=== PATIENT | male | born 1950 | race Caucasian/White ===

== ENCOUNTER 2017-12-03 19:30 | Inpatient (IN) | payer MEDICARE ==
[2017-12-03] MEDS ORDERED: Maalox 30 mL Cup PO PRN (19:54)
[2017-12-03] MEDS ORDERED: Magnesium Hydroxide (MOM) 30 mL UDC PO PRN (19:54)
[2017-12-03 19:55] VITALS: BP 113/73
[2017-12-04] MEDS: Multivitamin Tab PO SCH (08:49)
[2017-12-04] MEDS ORDERED: Haloperidol Lactate 5 mg/mL 1mL Vial ONE (09:42)
[2017-12-04] MEDS ORDERED: Haloperidol Lactate 5 mg/mL 1mL Vial IM ONE (09:55)
[2017-12-04] MEDS: Atorvastatin Calcium 10 MG TAB PO SCH (20:44)
--- NOTE | 2017-12-04 21:21 | History & Physical ---
ADMIT DATE: 12/03/2017 HISTORY OF PRESENT ILLNESS: The patient is a 67-year-old male with long history of hypertension, hyperlipidemia, benign prostatic hypertrophy, dementia, psychosis, admitted to [facility], Dr. Iglesias's service for evaluation and treatment. The patient denies any chest pain, shortness of breath, nausea or vomiting. No fever, no chills. PAST MEDICAL HISTORY: Hypertension, hyperlipidemia, benign prostatic hypertrophy, dementia, and psychosis. PAST SURGICAL HISTORY: No recent surgery. ALLERGIES: LITHIUM. SOCIAL HISTORY: No smoking, no alcohol, no drugs. FAMILY HISTORY: Noncontributory. REVIEW OF SYSTEMS: RENAL SYSTEM: No history of chronic renal disorder. CARDIOVASCULAR: No coronary artery disease. ENDOCRINE: No diabetes or thyroid problem. GASTROINTESTINAL: No upper or lower gastrointestinal bleed. NEUROLOGICAL: No seizure disorder. MUSCULOSKELETAL: No muscular dystrophy. HEMATOLOGIC: No bleeding tendencies. RESPIRATORY: No asthma. GENITOURINARY: He has history of benign prostatic hypertrophy. PHYSICAL EXAMINATION: GENERAL: He is awake, not coherent. VITAL SIGNS: Temperature 98.8, heart rate 85, blood pressure 102/65. HEENT: Normocephalic. Pupils reactive to light and accommodation. Sclerae clear. NECK: Supple. Negative for lymphadenopathy, JVD or bruit. CHEST: Bilaterally normal. No rhonchi or wheezing. HEART: S1, S2 normal. No murmur, or gallop rhythm. ABDOMEN: Soft, bowel sounds positive. EXTREMITIES: No edema. NEUROLOGIC: He is awake, not coherent. No focal motor or sensory deficit. ASSESSMENT: 1. Hypertension. 2. Hyperlipidemia. 3. Benign prostatic hypertrophy. 4. Dementia. 5. Psychosis. PLAN: The patient admitted in the hospital under Dr. Iglesias's service. Medical problems addressed during hospitalization, psychosis and dementia. Medical problems addressed at discharge are hypertension, benign prostatic hypertrophy, and hyperlipidemia. The patient is medically stable for activity. Thank you Dr. Iglesias for asking me to see your patient. JOB# [id number]
[2017-12-05 07:52] LABS: % BASOPHILS 1.6 % (0.0-2.0); % EOSINOPHILS 2.7 % (0.0-5.0); % LYMPHOCYTES 33.3 % (20.0-50.0); % MONOCYTES 7.5 % (2.0-10.0); % NEUTROPHILS 54.9 % (40.0-80.0); BASOPHILE ABSOLUTE 0.1 Th/cumm (0-0.2); EOSINOPHILE ABSOLUTE 0.2 Th/cmm (0.1-0.4); HEMATOCRIT 40.3 % (41.0-60); HEMOGLOBIN 13.6 gm/dL (12-16); LYMPHOCYTE ABSOLUTE 2.1 Th/cmm (1.5-3.0); MEAN CELL VOLUME 86.4 fl (80-99); MEAN CORPUSCULAR HEMOGLOBIN 29.1 pg (27.0-31.0); MEAN CORPUSCULAR HGB CONC 33.7 pg (28.0-36.0); MEAN PLATELET VOLUME 6.6 fl; MONOCYTE ABSOLUTE 0.5 Th/cmm (0.3-1.0); NEUTROPHILE ABSOLUTE 3.3 Th/cmm (1.8-8.0); PLATELET COUNT 290 Th/cmm (150-400); RED BLOOD COUNT 4.67 Mil/cmm (3.80-5.80); RED CELL DISTRIBUTION WIDTH 13.3 % (11.5-20.0); WHITE BLOOD COUNT 6.2 Th/cmm (4.8-10.8)
[2017-12-05 08:20] LABS: ALB/GLOB RATIO 1.4 (1.0-1.8); ALBUMIN 4.2 gm/dL (4.2-5.5); ANION GAP 13.4 (7.0-16.0); BILIRUBIN,TOTAL 0.5 mg/dL (0.3-1.0); CALCIUM SERUM 9.6 mg/dL (8.6-10.3); CARBON DIOXIDE 23.7 mEq/L (21.0-31.0); CREATININE - SERUM 1.5 mg/dL (0.7-1.3); GFR AFRICAN-AMERICAN 59.7 ml/min (>90); GFR NON AFRICAN-AMERICAN 49.3 ml/min; POTASSIUM SERUM 4.1 mEq/L (3.5-5.1); TOTAL PROTEIN,SERUM 7.2 gm/dL (6.0-8.3)
[2017-12-05] MEDS: Multivitamin Tab PO SCH (09:17)
--- NOTE | 2017-12-05 14:35 | Internal Medicine Prog Note ---
Internal Medicine Subjective - Subjective Service Date: 12/05/17 Patient seen and examined:: with staff Patient is:: awake, in bed, talking Per staff patient has:: no adverse event (HE DENIES ANY PAIN OR SOB.) Internal Medicine Objective - Results Result Diagrams: 12/05/17 07:25 12/05/17 07:25 Recent Labs: Laboratory Last Values WBC 6.2 Th/cmm (4.8-10.8) 12/05/17 07:25 RBC 4.67 Mil/cmm (3.80-5.80) 12/05/17 07:25 Hgb 13.6 gm/dL (12-16) 12/05/17 07:25 Hct 40.3 % (41.0-60) L 12/05/17 07:25 MCV 86.4 fl (80-99) 12/05/17 07:25 MCH 29.1 pg (27.0-31.0) 12/05/17 07:25 MCHC Differential 33.7 pg (28.0-36.0) 12/05/17 07:25 RDW 13.3 % (11.5-20.0) 12/05/17 07:25 Plt Count 290 Th/cmm (150-400) 12/05/17 07:25 MPV 6.6 fl 12/05/17 07:25 Neutrophils % 54.9 % (40.0-80.0) 12/05/17 07:25 Lymphocytes % 33.3 % (20.0-50.0) 12/05/17 07:25 Monocytes % 7.5 % (2.0-10.0) 12/05/17 07:25 Eosinophils % 2.7 % (0.0-5.0) 12/05/17 07:25 Basophils % 1.6 % (0.0-2.0) 12/05/17 07:25 Sodium 141 mEq/L (136-145) 12/05/17 07:25 Potassium 4.1 mEq/L (3.5-5.1) 12/05/17 07:25 Chloride 108 mEq/L (98-107) H 12/05/17 07:25 Carbon Dioxide 23.7 mEq/L (21.0-31.0) 12/05/17 07:25 Anion Gap 13.4 (7.0-16.0) 12/05/17 07:25 BUN 30 mg/dL (7-25) H 12/05/17 07:25 Creatinine 1.5 mg/dL (0.7-1.3) H 12/05/17 07:25 Est GFR ( Amer) 59.7 ml/min (>90) 12/05/17 07:25 Est GFR (Non-Af Amer) 49.3 ml/min 12/05/17 07:25 BUN/Creatinine Ratio 20.0 12/05/17 07:25 Glucose 116 mg/dL (70-105) H 12/05/17 07:25 Calcium 9.6 mg/dL (8.6-10.3) 12/05/17 07:25 Total Bilirubin 0.5 mg/dL (0.3-1.0) 12/05/17 07:25 AST 22 U/L (13-39) 12/05/17 07:25 ALT 14 U/L (7-52) 12/05/17 07:25 Alkaline Phosphatase 71 U/L (34-104) 12/05/17 07:25 Total Protein 7.2 gm/dL (6.0-8.3) 12/05/17 07:25 Albumin 4.2 gm/dL (4.2-5.5) 12/05/17 07:25 Globulin 3.0 gm/dL 12/05/17 07:25 Albumin/Globulin Ratio 1.4 (1.0-1.8) 12/05/17 07:25 TSH 5.17 uIU/ml (0.34-5.60) 12/05/17 07:25 - Physical Exam Vitals and I&O: Vital Signs Temp 97.6 F 12/05/17 14:00 Pulse 104 12/05/17 14:00 Resp 18 12/05/17 14:00 BP 133/73 12/05/17 14:00 Pulse Ox 98 12/05/17 14:00 Intake & Output 12/04/17 12/05/17 12/05/17 18:59 06:59 18:59 Intake Total 1200 Output Total 600 Balance 600 Intake: Oral 1200 Output: Urine 600 Active Medications: Current Medications Acetaminophen (Tylenol) 650 mg PO Q4HR PRN PRN Reason: Mild Pain / Temp above 100 Stop: 02/01/18 19:53 Last Admin: 12/04/17 21:18 Dose: 650 mg Al Hydrox/Mg Hydrox/Simethicone (Maalox) 30 ml PO Q4HR PRN PRN Reason: GI DISTRESS Stop: 02/01/18 19:53 Atorvastatin Calcium (Lipitor) 20 mg PO HS [facility]; Protocol Stop: 02/02/18 20:59 Last Admin: 12/04/17 20:44 Dose: 20 mg Bethanechol Chloride (Urecholine) 50 mg PO DAILY [facility] Stop: 02/02/18 08:59 Last Admin: 12/05/17 09:16 Dose: 50 mg Gabapentin (Neurontin) 100 mg PO DAILY [facility] Stop: 02/02/18 08:59 Last Admin: 12/05/17 09:18 Dose: 100 mg Lamotrigine (Lamictal) 75 mg PO BID [facility]; Protocol Stop: 02/03/18 08:59 Last Admin: 12/05/17 09:17 Dose: 75 mg Lisinopril (Zestril) 10 mg PO DAILY [facility] Stop: 02/02/18 08:59 Last Admin: 12/05/17 09:18 Dose: Not Given Lorazepam (Ativan) 0.5 mg PO Q4HR PRN; Protocol PRN Reason: Anxiety/agitation Stop: 01/02/18 19:53 Last Admin: 12/05/17 14:10 Dose: 0.5 mg Metformin HCl (Glucophage) 500 mg PO BIDWM [facility] Stop: 02/02/18 07:59 Last Admin: 12/05/17 09:17 Dose: 500 mg Multivitamins/Vitamin C (Theragran) 1 tab PO DAILY [facility] Stop: 02/02/18 08:59 Last Admin: 12/05/17 09:17 Dose: 1 tab Olanzapine (Zyprexa) 10 mg PO Q12HR [facility]; Protocol Stop: 02/02/18 08:59 Last Admin: 12/05/17 09:17 Dose: 10 mg Tamsulosin HCl (Flomax) 0.4 mg PO HS [facility] Stop: 02/02/18 20:59 Last Admin: 12/04/17 20:45 Dose: 0.4 mg Trazodone HCl (Desyrel) 50 mg PO HS [facility]; Protocol Stop: 02/03/18 20:59 Venlafaxine HCl (Effexor Xr) 75 mg PO DAILY [facility]; Protocol Stop: 02/02/18 08:59 Last Admin: 12/05/17 09:18 Dose: 75 mg Zolpidem Tartrate (Ambien) 5 mg PO HS PRN PRN Reason: Insomnia Stop: 02/01/18 19:53 Last Admin: 12/05/17 01:33 Dose: 5 mg General: demented HEENT: NC/AT, PERRLA, EOMI, anicteric sclerae, throat clear Neck: No JVD, No thyromegaly, +2 carotid pulse wo bruit, No LAD Cardiovascular: RRR, Normal S1, Normal S2, without murmur Abdomen: soft, non-tender, tender, thin, globular, non-distended Extremities: clear Neurological: no change Internal Medicine Assmt/Plan - Assessment Assessment: 1.HYPERLIPIDEMIA. 2.BPH. 3.HTN. 4.DEMENTIA. - Plan Plan: CONTINUE ON CURRENT MEDICATION AND DIET.
[2017-12-05] MEDS: Atorvastatin Calcium 10 MG TAB PO SCH (20:55)
--- NOTE | 2017-12-05 21:46 | Psychosocial Evaluation ---
DATE OF SERVICE: 12/04/2017 PSYCHIATRIC INITIAL EVALUATION AND MENTAL STATUS EXAM AGE: 67. SEX: Male. PHYSICIAN: Dr. Iglesias CHIEF COMPLAINT: 5150 hold for dangerous to self. HISTORY OF PRESENT ILLNESS: The patient is a 67-year-old male who was placed on 5150 hold by [facility] staff. The patient said that he has suicidal ideations and he went to the Emergency Room and said that he has planned to go into traffic. The patient said that he has been feeling severely depressed lately and also he was tearful in the Emergency Room and he has been having thoughts of ending his life. He also thinks that the medication has not been effective. The patient said that he has been in pain and that he has been living in board and care facility. He has been drinking 2-3 beers everyday thinking that that will help him with his pain, but he has been becoming more depressed. He also has been having difficulty with his coping. He started to have strong thoughts of running into traffic or overdose on pills. The patient said that he was having dinner at his friend's restaurant and he was very depressed and tearful and his friend ____ called Paramedics and they took him to [facility], where he was evaluated and placed on a hold and sent to the hospital. The patient has been having lack of motivations and lack of energy. The patient also has been having difficulty coping with living in a board and care facility. The patient also has been and his took his 15-year-old son and they live in a different state and the patient moved to [facility]. PAST PSYCHIATRIC HISTORY: The patient admits that he has been hospitalized multiple times on the past and also he tried to overdose on pills about 10 years ago. PAST MEDICAL HISTORY: The patient said that he has history of coronary artery stent placed and history of myocardial infarction and coronary artery disease. Also has benign prostatic hypertrophy. CHEMICAL DEPENDENCY HISTORY: The patient admits to drinking about 2-3 beers every day and he relapsed about 1 year ago after he was sober for about 20 years. SOCIAL HISTORY: The patient lives in [facility]. He is . He has 1 son, age 1515 years old that lives with his ex-. The patient denies legal issues or abuse issues. FAMILY PSYCHIATRIC AND CHEMICAL DEPENDENCY HISTORY: The patient denies. ALLERGIES: No known allergies. MENTAL STATUS EXAMINATION: The patient appears slightly older than his stated age. Anxious. Sad affect. In a depressed mood. Cooperative. Thought processes are mainly goal directed. The patient denies any auditory or visual hallucinations or delusions. The patient admits to suicidal ideations with plan, but denies any homicidal ideations. The patient is alert and oriented to time, place, person, and situation. Intact immediate, recent, and remote memories. Fair insight and he knows he needs help. Poor judgment ____. He seems to be of average intelligence based on his verbal ability. Fair attention and concentration. ASSESSMENT: PRIMARY DIAGNOSIS: Bipolar disorder, depressed episode, severe, without psychotic features. SECONDARY DIAGNOSIS: Alcohol use disorder. MEDICAL DIAGNOSES: Benign prostatic hypertrophy. Status post placement of the stent. TREATMENT PLAN: We will monitor the patient's behavior closely. We will monitor for possible detoxification. We will work on his ineffective coping and his suicidal ideations. Also, we will monitor psychotropic medications. The patient is taking Effexor, Zyprexa, and Lamictal. ESTIMATED LENGTH OF STAY: 7-10 days. THE PATIENT'S STRENGTHS AND WEAKNESSES: The patient's strength is not clear at this time. Weakness is ineffective coping and misuse of leisure time by drinking. AFTER DISCHARGE PLAN: Outpatient treatment and followup will continue as an outpatient. CRITERIA FOR DISCHARGE: The patient will not be suicidal and will stabilize psychotropic medications and will establish outpatient treatment plans. JOB# [id number]
[2017-12-06] MEDS: Multivitamin Tab PO SCH (09:23)
--- NOTE | 2017-12-06 17:24 | Internal Medicine Prog Note ---
Internal Medicine Subjective - Subjective Service Date: 12/06/17 Patient seen and examined:: with staff Patient is:: awake, in bed, talking Per staff patient has:: no adverse event (HE DENIES ANY PAIN OR SOB.) Internal Medicine Objective - Results Result Diagrams: 12/05/17 07:25 12/05/17 07:25 Recent Labs: Laboratory Last Values WBC 6.2 Th/cmm (4.8-10.8) 12/05/17 07:25 RBC 4.67 Mil/cmm (3.80-5.80) 12/05/17 07:25 Hgb 13.6 gm/dL (12-16) 12/05/17 07:25 Hct 40.3 % (41.0-60) L 12/05/17 07:25 MCV 86.4 fl (80-99) 12/05/17 07:25 MCH 29.1 pg (27.0-31.0) 12/05/17 07:25 MCHC Differential 33.7 pg (28.0-36.0) 12/05/17 07:25 RDW 13.3 % (11.5-20.0) 12/05/17 07:25 Plt Count 290 Th/cmm (150-400) 12/05/17 07:25 MPV 6.6 fl 12/05/17 07:25 Neutrophils % 54.9 % (40.0-80.0) 12/05/17 07:25 Lymphocytes % 33.3 % (20.0-50.0) 12/05/17 07:25 Monocytes % 7.5 % (2.0-10.0) 12/05/17 07:25 Eosinophils % 2.7 % (0.0-5.0) 12/05/17 07:25 Basophils % 1.6 % (0.0-2.0) 12/05/17 07:25 Sodium 141 mEq/L (136-145) 12/05/17 07:25 Potassium 4.1 mEq/L (3.5-5.1) 12/05/17 07:25 Chloride 108 mEq/L (98-107) H 12/05/17 07:25 Carbon Dioxide 23.7 mEq/L (21.0-31.0) 12/05/17 07:25 Anion Gap 13.4 (7.0-16.0) 12/05/17 07:25 BUN 30 mg/dL (7-25) H 12/05/17 07:25 Creatinine 1.5 mg/dL (0.7-1.3) H 12/05/17 07:25 Est GFR ( Amer) 59.7 ml/min (>90) 12/05/17 07:25 Est GFR (Non-Af Amer) 49.3 ml/min 12/05/17 07:25 BUN/Creatinine Ratio 20.0 12/05/17 07:25 Glucose 116 mg/dL (70-105) H 12/05/17 07:25 Calcium 9.6 mg/dL (8.6-10.3) 12/05/17 07:25 Total Bilirubin 0.5 mg/dL (0.3-1.0) 12/05/17 07:25 AST 22 U/L (13-39) 12/05/17 07:25 ALT 14 U/L (7-52) 12/05/17 07:25 Alkaline Phosphatase 71 U/L (34-104) 12/05/17 07:25 Total Protein 7.2 gm/dL (6.0-8.3) 12/05/17 07:25 Albumin 4.2 gm/dL (4.2-5.5) 12/05/17 07:25 Globulin 3.0 gm/dL 12/05/17 07:25 Albumin/Globulin Ratio 1.4 (1.0-1.8) 12/05/17 07:25 TSH 5.17 uIU/ml (0.34-5.60) 12/05/17 07:25 - Physical Exam Vitals and I&O: Vital Signs Temp 97.0 F 12/06/17 14:00 Pulse 99 12/06/17 14:00 Resp 20 12/06/17 14:00 BP 149/79 12/06/17 14:00 Pulse Ox 98 12/06/17 14:00 Intake & Output 12/05/17 12/06/17 12/06/17 18:59 06:59 18:59 Intake Total 500 Balance 500 Intake: Oral 500 Other: # Bowel Movements 1 Active Medications: Current Medications Acetaminophen (Tylenol) 650 mg PO Q4HR PRN PRN Reason: Mild Pain / Temp above 100 Stop: 02/01/18 19:53 Last Admin: 12/04/17 21:18 Dose: 650 mg Al Hydrox/Mg Hydrox/Simethicone (Maalox) 30 ml PO Q4HR PRN PRN Reason: GI DISTRESS Stop: 02/01/18 19:53 Atorvastatin Calcium (Lipitor) 20 mg PO HS [facility]; Protocol Stop: 02/02/18 20:59 Last Admin: 12/05/17 20:55 Dose: 20 mg Bethanechol Chloride (Urecholine) 50 mg PO DAILY [facility] Stop: 02/02/18 08:59 Gabapentin (Neurontin) 100 mg PO DAILY [facility] Stop: 02/02/18 08:59 Last Admin: 12/06/17 09:23 Dose: 100 mg Lamotrigine (Lamictal) 75 mg PO BID [facility]; Protocol Stop: 02/03/18 08:59 Last Admin: 12/06/17 17:14 Dose: 75 mg Lisinopril (Zestril) 10 mg PO DAILY [facility] Stop: 02/02/18 08:59 Last Admin: 12/06/17 09:23 Dose: 10 mg Lorazepam (Ativan) 0.5 mg PO Q4HR PRN; Protocol PRN Reason: Anxiety/agitation Stop: 01/02/18 19:53 Last Admin: 12/06/17 15:22 Dose: 0.5 mg Metformin HCl (Glucophage) 500 mg PO BIDWM [facility] Stop: 02/02/18 07:59 Last Admin: 12/06/17 09:23 Dose: 500 mg Multivitamins/Vitamin C (Theragran) 1 tab PO DAILY [facility] Stop: 02/02/18 08:59 Last Admin: 12/06/17 09:23 Dose: 1 tab Olanzapine (Zyprexa) 10 mg PO Q12HR [facility]; Protocol Stop: 02/02/18 08:59 Last Admin: 12/06/17 09:24 Dose: 10 mg Tamsulosin HCl (Flomax) 0.4 mg PO HS [facility] Stop: 02/02/18 20:59 Last Admin: 12/05/17 20:56 Dose: 0.4 mg Trazodone HCl (Desyrel) 50 mg PO HS [facility]; Protocol Stop: 02/03/18 20:59 Last Admin: 12/05/17 20:56 Dose: 50 mg Venlafaxine HCl (Effexor Xr) 75 mg PO DAILY [facility]; Protocol Stop: 02/02/18 08:59 Last Admin: 12/06/17 09:24 Dose: 75 mg Zolpidem Tartrate (Ambien) 5 mg PO HS PRN PRN Reason: Insomnia Stop: 02/01/18 19:53 Last Admin: 12/06/17 01:54 Dose: 5 mg General: demented HEENT: NC/AT, PERRLA, EOMI, anicteric sclerae, throat clear Neck: No JVD, No thyromegaly, +2 carotid pulse wo bruit, No LAD Cardiovascular: RRR, Normal S1, Normal S2, without murmur Abdomen: soft, non-tender, tender, thin, globular, non-distended Extremities: clear Neurological: no change Internal Medicine Assmt/Plan - Assessment Assessment: 1.HYPERLIPIDEMIA. 2.BPH. 3.HTN. 4.DEMENTIA. - Plan Plan: CONTINUE ON CURRENT MEDICATION AND DIET. Nutritional Asmnt/Malnutr-PDOC - Dietary Evaluation Malnutrition Findings (Please click <Entered> for more info): Nutritional Asmnt/Malnutrition Start: 12/06/17 10: 47 Text: Status: Complete Freq: Protocol: Document 12/06/17 14:24 LCHENG (Rec: 12/06/17 14:37 [email or web address]) Nutritional Asmnt/Malnutrition Patient General Information Nutritional Screening Moderate Risk Diagnosis depresion Pertinent Medical Hx/Surgical Hx HTN, hyperlipidemia, BPH, dementia, psychosis Subjective Information Pt seen lying in bed at time of visit, finished lunch. Pt stated good appetite, he had big breakfast this morning, not hungry at this time. Advice pt to request snacks in the afternoon as needed. Pt verberlly understood. Current Diet Order/ Nutrition Support STEPHAN Pertinent Medications glucophage, theragran Pertinent Labs 12/05 Cl 108, BUN 30, Cr 1.5, GFR 59.7, Glucose 116 Nutritional Hx/Data Height 1.7 m Height (Calculated Centimeters) 170.2 Current Weight (lbs) 70.307 kg Weight (Calculated Kilograms) 70.3 Weight (Calculated Grams) 65664.8 [place] Body Weight 148 Body Mass Index (BMI) 24.3 Weight Status Approriate GI Symptoms GI Symptoms None Last BM 12/06 Difficult in: None Skin Integrity/Comment: intact Current %PO Good (75-100%) Estimated Nutritional Goals BEE in Kcals: Using Current wt Calories/Kcals/Kg 25-30 Kcals Calculated 5761-7595 Protein: Using Current wt Protein g/k.7 Protein Calculated 50 Fluid: ml 1750-2100ml (1ml/kcal) Nutritional Problem 1. Problem Problem altered nutrition related labs Etiology impaired renal function Signs/Symptoms: BUN 30, Cr 1.5, GFR 59.7 Malnutrition Alert Is there a minimum of two criteria No selected? Query Text:Check all the applicable criteria. A minimum of two criteria are recommended for diagnosis of either severe or non-severe malnutrition. Malnutrition Related to Morbid Obesity Malnutrition related to morbid obesity No Intervention/Recommendation Comments 1. Continue with STEPHAN diet as ordered. Monitor renal labs. 2. Monitor PO intake, wt, labs and skin integrity 3. F/U as low risk in 7 days, 12/13 Expected Outcomes/Goals Expected Outcomes/Goals 1. PO intake to meet at least 75% of nutritional needs. 2. Wt stability, skin to remain intact, labs to approach WNL.
--- NOTE | 2017-12-06 18:54 | Progress Notes ---
DATE: SUBJECTIVE: Chart reviewed and the patient interviewed. Also discussed the patient's condition with the staff and reviewed records and labs. The patient continued to be easily agitated and he is in angry and in irritable mood. Yesterday, the patient was restless and aggressive with the staff and he was threatening and the patient was given Haldol, Ativan and Benadryl injection on emergency basis. Also, still have difficulty following directions and still have thoughts of suicide, antiseptic. Otherwise, the patient is compliant with taking medications with no side effect of medications. ASSESSMENT: The patient is still psychotic and high risk suicide. TREATMENT PLAN: We will continue Lamictal and we will try to fix to evaluate his other medications. Lamictal will be increased to 75 mg twice a day. Also, continue to work on his ineffective coping and his irritability and we will continue to follow up. [facility]# [id number]
--- NOTE | 2017-12-06 21:03 | Progress Notes ---
DATE: 12/06/2017 SUBJECTIVE: Chart reviewed and the patient interviewed. Also, discussed the patient's condition with the staff and reviewed records and labs. The patient is still easily agitated and he is still in irritable and angry mood. The patient also is still talking about running into traffic. The patient also still has episodes of anger and irritability. Also, continue to pace up and down the unit with a Persaud catheter in his hand. At the same time, the patient is compliant with taking his Zyprexa and Effexor as well as Lamictal. Also, the patient slept slightly better yesterday with addition of trazodone 50 mg at bedtime. He is still irritable and still needs lots of redirections. ASSESSMENT: The patient is still agitated. TREATMENT PLAN: We will continue monitoring his behavior and his condition. Also, continue Effexor, Zyprexa, trazodone and Lamictal and will continue to follow up closely. JOB# [id number]
[2017-12-06] MEDS: Atorvastatin Calcium 10 MG TAB PO SCH (21:09)
[2017-12-07] MEDS: Multivitamin Tab PO SCH (08:23)
--- NOTE | 2017-12-07 11:36 | Internal Medicine Prog Note ---
Internal Medicine Subjective - Subjective Service Date: 12/07/17 Patient seen and examined:: with staff Patient is:: awake, in bed, talking Per staff patient has:: no adverse event (HE DENIES ANY PAIN OR SOB.) Internal Medicine Objective - Results Result Diagrams: 12/05/17 07:25 12/05/17 07:25 Recent Labs: Laboratory Last Values WBC 6.2 Th/cmm (4.8-10.8) 12/05/17 07:25 RBC 4.67 Mil/cmm (3.80-5.80) 12/05/17 07:25 Hgb 13.6 gm/dL (12-16) 12/05/17 07:25 Hct 40.3 % (41.0-60) L 12/05/17 07:25 MCV 86.4 fl (80-99) 12/05/17 07:25 MCH 29.1 pg (27.0-31.0) 12/05/17 07:25 MCHC Differential 33.7 pg (28.0-36.0) 12/05/17 07:25 RDW 13.3 % (11.5-20.0) 12/05/17 07:25 Plt Count 290 Th/cmm (150-400) 12/05/17 07:25 MPV 6.6 fl 12/05/17 07:25 Neutrophils % 54.9 % (40.0-80.0) 12/05/17 07:25 Lymphocytes % 33.3 % (20.0-50.0) 12/05/17 07:25 Monocytes % 7.5 % (2.0-10.0) 12/05/17 07:25 Eosinophils % 2.7 % (0.0-5.0) 12/05/17 07:25 Basophils % 1.6 % (0.0-2.0) 12/05/17 07:25 Sodium 141 mEq/L (136-145) 12/05/17 07:25 Potassium 4.1 mEq/L (3.5-5.1) 12/05/17 07:25 Chloride 108 mEq/L (98-107) H 12/05/17 07:25 Carbon Dioxide 23.7 mEq/L (21.0-31.0) 12/05/17 07:25 Anion Gap 13.4 (7.0-16.0) 12/05/17 07:25 BUN 30 mg/dL (7-25) H 12/05/17 07:25 Creatinine 1.5 mg/dL (0.7-1.3) H 12/05/17 07:25 Est GFR ( Amer) 59.7 ml/min (>90) 12/05/17 07:25 Est GFR (Non-Af Amer) 49.3 ml/min 12/05/17 07:25 BUN/Creatinine Ratio 20.0 12/05/17 07:25 Glucose 116 mg/dL (70-105) H 12/05/17 07:25 Calcium 9.6 mg/dL (8.6-10.3) 12/05/17 07:25 Total Bilirubin 0.5 mg/dL (0.3-1.0) 12/05/17 07:25 AST 22 U/L (13-39) 12/05/17 07:25 ALT 14 U/L (7-52) 12/05/17 07:25 Alkaline Phosphatase 71 U/L (34-104) 12/05/17 07:25 Total Protein 7.2 gm/dL (6.0-8.3) 12/05/17 07:25 Albumin 4.2 gm/dL (4.2-5.5) 12/05/17 07:25 Globulin 3.0 gm/dL 12/05/17 07:25 Albumin/Globulin Ratio 1.4 (1.0-1.8) 12/05/17 07:25 TSH 5.17 uIU/ml (0.34-5.60) 12/05/17 07:25 - Physical Exam Vitals and I&O: Vital Signs Temp 96.9 F 12/06/17 20:42 Pulse 91 12/07/17 08:21 Resp 19 12/06/17 20:42 BP 132/74 12/07/17 08:21 Pulse Ox 97 12/06/17 20:42 Intake & Output 12/06/17 12/07/17 12/07/17 18:59 06:59 18:59 Intake Total 1600 240 Balance 1600 240 Intake: Oral 1600 240 Other: # Voids 1 # Bowel Movements 1 Active Medications: Current Medications Acetaminophen (Tylenol) 650 mg PO Q4HR PRN PRN Reason: Mild Pain / Temp above 100 Stop: 02/01/18 19:53 Last Admin: 12/04/17 21:18 Dose: 650 mg Al Hydrox/Mg Hydrox/Simethicone (Maalox) 30 ml PO Q4HR PRN PRN Reason: GI DISTRESS Stop: 02/01/18 19:53 Atorvastatin Calcium (Lipitor) 20 mg PO HS [facility]; Protocol Stop: 02/02/18 20:59 Last Admin: 12/06/17 21:09 Dose: 20 mg Bethanechol Chloride (Urecholine) 50 mg PO DAILY JOSE DANIEL Stop: 02/02/18 08:59 Last Admin: 12/07/17 08:18 Dose: 50 mg Gabapentin (Neurontin) 100 mg PO DAILY JOSE DANIEL Stop: 02/02/18 08:59 Last Admin: 12/07/17 08:18 Dose: 100 mg Lamotrigine (Lamictal) 75 mg PO BID JOSE DANIEL; Protocol Stop: 02/03/18 08:59 Last Admin: 12/07/17 08:18 Dose: 75 mg Lisinopril (Zestril) 10 mg PO DAILY [facility] Stop: 02/02/18 08:59 Last Admin: 12/07/17 08:21 Dose: 10 mg Lorazepam (Ativan) 0.5 mg PO Q4HR PRN; Protocol PRN Reason: Anxiety/agitation Stop: 01/02/18 19:53 Last Admin: 12/06/17 21:36 Dose: 0.5 mg Metformin HCl (Glucophage) 500 mg PO BIDWM JOSE DANIEL Stop: 02/02/18 07:59 Last Admin: 12/07/17 08:23 Dose: 500 mg Multivitamins/Vitamin C (Theragran) 1 tab PO DAILY JOSE DANIEL Stop: 02/02/18 08:59 Last Admin: 12/07/17 08:23 Dose: 1 tab Olanzapine (Zyprexa) 10 mg PO Q12HR JOSE DANIEL; Protocol Stop: 02/02/18 08:59 Last Admin: 12/07/17 08:18 Dose: 10 mg Tamsulosin HCl (Flomax) 0.4 mg PO HS JOSE DANIEL Stop: 02/02/18 20:59 Last Admin: 12/06/17 21:09 Dose: 0.4 mg Trazodone HCl (Desyrel) 100 mg PO HS [facility]; Protocol Stop: 08/15/18 20:59 Venlafaxine HCl (Effexor Xr) 75 mg PO DAILY JOSE DANIEL; Protocol Stop: 02/02/18 08:59 Last Admin: 12/07/17 08:18 Dose: 75 mg Zolpidem Tartrate (Ambien) 5 mg PO HS PRN PRN Reason: Insomnia Stop: 02/01/18 19:53 Last Admin: 12/07/17 00:33 Dose: 5 mg General: demented HEENT: NC/AT, PERRLA, EOMI, anicteric sclerae, throat clear Neck: No JVD, No thyromegaly, +2 carotid pulse wo bruit, No LAD Cardiovascular: RRR, Normal S1, Normal S2, without murmur Abdomen: soft, non-tender, tender, thin, globular, non-distended Extremities: clear Neurological: no change Internal Medicine Assmt/Plan - Assessment Assessment: 1.HYPERLIPIDEMIA. 2.BPH. 3.HTN. 4.DEMENTIA. - Plan Plan: CONTINUE ON CURRENT MEDICATION AND DIET. Nutritional Asmnt/Malnutr-PDOC - Dietary Evaluation Malnutrition Findings (Please click <Entered> for more info): Nutritional Asmnt/Malnutrition Start: 12/06/17 10: 47 Text: Status: Complete Freq: Protocol: Document 12/06/17 14:24 LCHENG (Rec: 12/06/17 14:37 [email or web address]) Nutritional Asmnt/Malnutrition Patient General Information Nutritional Screening Moderate Risk Diagnosis depresion Pertinent Medical Hx/Surgical Hx HTN, hyperlipidemia, BPH, dementia, psychosis Subjective Information Pt seen lying in bed at time of visit, finished lunch. Pt stated good appetite, he had big breakfast this morning, not hungry at this time. Advice pt to request snacks in the afternoon as needed. Pt verberlly understood. Current Diet Order/ Nutrition Support STEPHAN Pertinent Medications glucophage, theragran Pertinent Labs 12/05 Cl 108, BUN 30, Cr 1.5, GFR 59.7, Glucose 116 Nutritional Hx/Data Height 1.7 m Height (Calculated Centimeters) 170.2 Current Weight (lbs) 70.307 kg Weight (Calculated Kilograms) 70.3 Weight (Calculated Grams) 81928.8 [place] Body Weight 148 Body Mass Index (BMI) 24.3 Weight Status Approriate GI Symptoms GI Symptoms None Last BM 12/06 Difficult in: None Skin Integrity/Comment: intact Current %PO Good (75-100%) Estimated Nutritional Goals BEE in Kcals: Using Current wt Calories/Kcals/Kg 25-30 Kcals Calculated 9945-3139 Protein: Using Current wt Protein g/k.7 Protein Calculated 50 Fluid: ml 1750-2100ml (1ml/kcal) Nutritional Problem 1. Problem Problem altered nutrition related labs Etiology impaired renal function Signs/Symptoms: BUN 30, Cr 1.5, GFR 59.7 Malnutrition Alert Is there a minimum of two criteria No selected? Query Text:Check all the applicable criteria. A minimum of two criteria are recommended for diagnosis of either severe or non-severe malnutrition. Malnutrition Related to Morbid Obesity Malnutrition related to morbid obesity No Intervention/Recommendation Comments 1. Continue with STEPHAN diet as ordered. Monitor renal labs. 2. Monitor PO intake, wt, labs and skin integrity 3. F/U as low risk in 7 days, 12/13 Expected Outcomes/Goals Expected Outcomes/Goals 1. PO intake to meet at least 75% of nutritional needs. 2. Wt stability, skin to remain intact, labs to approach WNL.
[2017-12-07] MEDS: Atorvastatin Calcium 10 MG TAB PO SCH (21:01)
--- NOTE | 2017-12-07 23:57 | Progress Notes ---
DATE: SUBJECTIVE: Chart reviewed and the patient interviewed. Also discussed the patient's condition with the staff and reviewed records and labs. The patient is complaining of insomnia and stated he has not able to sleep at night. He also is still in a depressed mood. Also, interacts minimally with peers and with others. He was having difficulty with socializing and his affect is still sad. He also focus on his medications. Otherwise, no suicidal ideations. No side effects of medications. ASSESSMENT: The patient is still depressed. TREATMENT PLAN: We will increase trazodone to 100 mg at bedtime and we will continue to monitor his behavior and his condition closely. JOB# [id number]
[2017-12-08] MEDS: Multivitamin Tab PO SCH (09:35)
--- NOTE | 2017-12-08 15:20 | Internal Medicine Prog Note ---
Internal Medicine Subjective - Subjective Service Date: 12/08/17 Patient seen and examined:: with staff Patient is:: awake, in bed, talking Per staff patient has:: no adverse event (HE DENIES ANY PAIN OR SOB.) Internal Medicine Objective - Results Result Diagrams: 12/05/17 07:25 12/05/17 07:25 Recent Labs: Laboratory Last Values WBC 6.2 Th/cmm (4.8-10.8) 12/05/17 07:25 RBC 4.67 Mil/cmm (3.80-5.80) 12/05/17 07:25 Hgb 13.6 gm/dL (12-16) 12/05/17 07:25 Hct 40.3 % (41.0-60) L 12/05/17 07:25 MCV 86.4 fl (80-99) 12/05/17 07:25 MCH 29.1 pg (27.0-31.0) 12/05/17 07:25 MCHC Differential 33.7 pg (28.0-36.0) 12/05/17 07:25 RDW 13.3 % (11.5-20.0) 12/05/17 07:25 Plt Count 290 Th/cmm (150-400) 12/05/17 07:25 MPV 6.6 fl 12/05/17 07:25 Neutrophils % 54.9 % (40.0-80.0) 12/05/17 07:25 Lymphocytes % 33.3 % (20.0-50.0) 12/05/17 07:25 Monocytes % 7.5 % (2.0-10.0) 12/05/17 07:25 Eosinophils % 2.7 % (0.0-5.0) 12/05/17 07:25 Basophils % 1.6 % (0.0-2.0) 12/05/17 07:25 Sodium 141 mEq/L (136-145) 12/05/17 07:25 Potassium 4.1 mEq/L (3.5-5.1) 12/05/17 07:25 Chloride 108 mEq/L (98-107) H 12/05/17 07:25 Carbon Dioxide 23.7 mEq/L (21.0-31.0) 12/05/17 07:25 Anion Gap 13.4 (7.0-16.0) 12/05/17 07:25 BUN 30 mg/dL (7-25) H 12/05/17 07:25 Creatinine 1.5 mg/dL (0.7-1.3) H 12/05/17 07:25 Est GFR ( Amer) 59.7 ml/min (>90) 12/05/17 07:25 Est GFR (Non-Af Amer) 49.3 ml/min 12/05/17 07:25 BUN/Creatinine Ratio 20.0 12/05/17 07:25 Glucose 116 mg/dL (70-105) H 12/05/17 07:25 Calcium 9.6 mg/dL (8.6-10.3) 12/05/17 07:25 Total Bilirubin 0.5 mg/dL (0.3-1.0) 12/05/17 07:25 AST 22 U/L (13-39) 12/05/17 07:25 ALT 14 U/L (7-52) 12/05/17 07:25 Alkaline Phosphatase 71 U/L (34-104) 12/05/17 07:25 Total Protein 7.2 gm/dL (6.0-8.3) 12/05/17 07:25 Albumin 4.2 gm/dL (4.2-5.5) 12/05/17 07:25 Globulin 3.0 gm/dL 12/05/17 07:25 Albumin/Globulin Ratio 1.4 (1.0-1.8) 12/05/17 07:25 TSH 5.17 uIU/ml (0.34-5.60) 12/05/17 07:25 - Physical Exam Vitals and I&O: Vital Signs Temp 97 F 12/08/17 06:38 Pulse 64 12/08/17 09:37 Resp 19 12/08/17 06:38 BP 125/60 12/08/17 09:37 Pulse Ox 97 12/08/17 06:38 Intake & Output 12/07/17 12/08/17 12/08/17 18:59 06:59 18:59 Intake Total 1000 120 Balance 1000 120 Intake: Oral 1000 120 Other: # Voids 4 3 # Bowel Movements 1 Active Medications: Current Medications Acetaminophen (Tylenol) 650 mg PO Q4HR PRN PRN Reason: Mild Pain / Temp above 100 Stop: 02/01/18 19:53 Last Admin: 12/04/17 21:18 Dose: 650 mg Al Hydrox/Mg Hydrox/Simethicone (Maalox) 30 ml PO Q4HR PRN PRN Reason: GI DISTRESS Stop: 02/01/18 19:53 Atorvastatin Calcium (Lipitor) 20 mg PO HS JOSE DANIEL; Protocol Stop: 02/02/18 20:59 Last Admin: 12/07/17 21:01 Dose: 20 mg Bethanechol Chloride (Urecholine) 50 mg PO QDAC JOSE DANIEL Stop: 02/05/18 08:59 Last Admin: 12/08/17 06:40 Dose: Not Given Gabapentin (Neurontin) 100 mg PO DAILY JOSE DANIEL Stop: 02/02/18 08:59 Last Admin: 12/08/17 09:36 Dose: 100 mg Lamotrigine (Lamictal) 75 mg PO BID JOSE DANIEL; Protocol Stop: 02/03/18 08:59 Last Admin: 12/08/17 09:35 Dose: 75 mg Lisinopril (Zestril) 10 mg PO DAILY JOSE DANIEL Stop: 02/02/18 08:59 Last Admin: 12/08/17 09:37 Dose: 10 mg Lorazepam (Ativan) 0.5 mg PO Q4HR PRN; Protocol PRN Reason: Anxiety/agitation Stop: 01/02/18 19:53 Last Admin: 12/08/17 11:39 Dose: 0.5 mg Metformin HCl (Glucophage) 500 mg PO BIDWM JOSE DANIEL Stop: 02/02/18 07:59 Last Admin: 12/08/17 08:40 Dose: 500 mg Multivitamins/Vitamin C (Theragran) 1 tab PO DAILY JOSE DANIEL Stop: 02/02/18 08:59 Last Admin: 12/08/17 09:35 Dose: 1 tab Olanzapine (Zyprexa) 10 mg PO Q12HR JOSE DANIEL; Protocol Stop: 02/02/18 08:59 Last Admin: 12/08/17 09:36 Dose: 10 mg Tamsulosin HCl (Flomax) 0.4 mg PO HS JOSE DANIEL Stop: 02/02/18 20:59 Last Admin: 12/07/17 21:02 Dose: 0.4 mg Trazodone HCl (Desyrel) 100 mg PO HS JOSE DANIEL; Protocol Stop: 08/15/18 20:59 Last Admin: 12/07/17 21:01 Dose: 100 mg Venlafaxine HCl (Effexor Xr) 75 mg PO DAILY JOSE DANIEL; Protocol Stop: 02/02/18 08:59 Last Admin: 12/08/17 09:36 Dose: 75 mg Zolpidem Tartrate (Ambien) 5 mg PO HS PRN PRN Reason: Insomnia Stop: 02/01/18 19:53 Last Admin: 12/07/17 21:01 Dose: 5 mg General: demented HEENT: NC/AT, PERRLA, EOMI, anicteric sclerae, throat clear Neck: No JVD, No thyromegaly, +2 carotid pulse wo bruit, No LAD Cardiovascular: RRR, Normal S1, Normal S2, without murmur Abdomen: soft, non-tender, tender, thin, globular, non-distended Extremities: clear Neurological: no change Internal Medicine Assmt/Plan - Assessment Assessment: 1.HYPERLIPIDEMIA. 2.BPH. 3.HTN. 4.DEMENTIA. - Plan Plan: CONTINUE ON CURRENT MEDICATION AND DIET. Nutritional Asmnt/Malnutr-PDOC - Dietary Evaluation Malnutrition Findings (Please click <Entered> for more info): Nutritional Asmnt/Malnutrition Start: 12/06/17 10: 47 Text: Status: Complete Freq: Protocol: Document 12/06/17 14:24 LCHENG (Rec: 12/06/17 14:37 [email or web address]) Nutritional Asmnt/Malnutrition Patient General Information Nutritional Screening Moderate Risk Diagnosis depresion Pertinent Medical Hx/Surgical Hx HTN, hyperlipidemia, BPH, dementia, psychosis Subjective Information Pt seen lying in bed at time of visit, finished lunch. Pt stated good appetite, he had big breakfast this morning, not hungry at this time. Advice pt to request snacks in the afternoon as needed. Pt verberlly understood. Current Diet Order/ Nutrition Support STEPHAN Pertinent Medications glucophage, theragran Pertinent Labs 12/05 Cl 108, BUN 30, Cr 1.5, GFR 59.7, Glucose 116 Nutritional Hx/Data Height 1.7 m Height (Calculated Centimeters) 170.2 Current Weight (lbs) 70.307 kg Weight (Calculated Kilograms) 70.3 Weight (Calculated Grams) 96740.8 [place] Body Weight 148 Body Mass Index (BMI) 24.3 Weight Status Approriate GI Symptoms GI Symptoms None Last BM 12/06 Difficult in: None Skin Integrity/Comment: intact Current %PO Good (75-100%) Estimated Nutritional Goals BEE in Kcals: Using Current wt Calories/Kcals/Kg 25-30 Kcals Calculated 4155-7187 Protein: Using Current wt Protein g/k.7 Protein Calculated 50 Fluid: ml 1750-2100ml (1ml/kcal) Nutritional Problem 1. Problem Problem altered nutrition related labs Etiology impaired renal function Signs/Symptoms: BUN 30, Cr 1.5, GFR 59.7 Malnutrition Alert Is there a minimum of two criteria No selected? Query Text:Check all the applicable criteria. A minimum of two criteria are recommended for diagnosis of either severe or non-severe malnutrition. Malnutrition Related to Morbid Obesity Malnutrition related to morbid obesity No Intervention/Recommendation Comments 1. Continue with STEPHAN diet as ordered. Monitor renal labs. 2. Monitor PO intake, wt, labs and skin integrity 3. F/U as low risk in 7 days, 12/13 Expected Outcomes/Goals Expected Outcomes/Goals 1. PO intake to meet at least 75% of nutritional needs. 2. Wt stability, skin to remain intact, labs to approach WNL.
[2017-12-08] MEDS: Atorvastatin Calcium 10 MG TAB PO SCH (20:49)
--- NOTE | 2017-12-08 23:55 | Progress Notes ---
DATE: 12/08/2017 SUBJECTIVE: Chart reviewed and the patient interviewed. Also discussed the patient's condition with the staff and reviewed records and labs. The patient is still in a depressed mood. The patient also is still interacting minimally with others. The patient also is still isolative and withdrawn. On the other hand, the patient denies any thoughts of suicide. He also slept better last night since trazodone was increased. ASSESSMENT: The patient is still depressed. TREATMENT PLAN: Continue to monitor his behavior and his condition and we will continue to follow up. JOB# [id number]
[2017-12-09] MEDS: Multivitamin Tab PO SCH (08:55)
--- NOTE | 2017-12-09 17:15 | Internal Medicine Prog Note ---
Internal Medicine Subjective - Subjective Service Date: 12/09/17 Patient seen and examined:: with staff (he feels better) Patient is:: awake, in bed, talking Per staff patient has:: no adverse event (HE DENIES ANY PAIN OR SOB.) Internal Medicine Objective - Results Result Diagrams: 12/05/17 07:25 12/05/17 07:25 Recent Labs: Laboratory Last Values WBC 6.2 Th/cmm (4.8-10.8) 12/05/17 07:25 RBC 4.67 Mil/cmm (3.80-5.80) 12/05/17 07:25 Hgb 13.6 gm/dL (12-16) 12/05/17 07:25 Hct 40.3 % (41.0-60) L 12/05/17 07:25 MCV 86.4 fl (80-99) 12/05/17 07:25 MCH 29.1 pg (27.0-31.0) 12/05/17 07:25 MCHC Differential 33.7 pg (28.0-36.0) 12/05/17 07:25 RDW 13.3 % (11.5-20.0) 12/05/17 07:25 Plt Count 290 Th/cmm (150-400) 12/05/17 07:25 MPV 6.6 fl 12/05/17 07:25 Neutrophils % 54.9 % (40.0-80.0) 12/05/17 07:25 Lymphocytes % 33.3 % (20.0-50.0) 12/05/17 07:25 Monocytes % 7.5 % (2.0-10.0) 12/05/17 07:25 Eosinophils % 2.7 % (0.0-5.0) 12/05/17 07:25 Basophils % 1.6 % (0.0-2.0) 12/05/17 07:25 Sodium 141 mEq/L (136-145) 12/05/17 07:25 Potassium 4.1 mEq/L (3.5-5.1) 12/05/17 07:25 Chloride 108 mEq/L (98-107) H 12/05/17 07:25 Carbon Dioxide 23.7 mEq/L (21.0-31.0) 12/05/17 07:25 Anion Gap 13.4 (7.0-16.0) 12/05/17 07:25 BUN 30 mg/dL (7-25) H 12/05/17 07:25 Creatinine 1.5 mg/dL (0.7-1.3) H 12/05/17 07:25 Est GFR ( Amer) 59.7 ml/min (>90) 12/05/17 07:25 Est GFR (Non-Af Amer) 49.3 ml/min 12/05/17 07:25 BUN/Creatinine Ratio 20.0 12/05/17 07:25 Glucose 116 mg/dL (70-105) H 12/05/17 07:25 Calcium 9.6 mg/dL (8.6-10.3) 12/05/17 07:25 Total Bilirubin 0.5 mg/dL (0.3-1.0) 12/05/17 07:25 AST 22 U/L (13-39) 12/05/17 07:25 ALT 14 U/L (7-52) 12/05/17 07:25 Alkaline Phosphatase 71 U/L (34-104) 12/05/17 07:25 Total Protein 7.2 gm/dL (6.0-8.3) 12/05/17 07:25 Albumin 4.2 gm/dL (4.2-5.5) 12/05/17 07:25 Globulin 3.0 gm/dL 12/05/17 07:25 Albumin/Globulin Ratio 1.4 (1.0-1.8) 12/05/17 07:25 TSH 5.17 uIU/ml (0.34-5.60) 12/05/17 07:25 - Physical Exam Vitals and I&O: Vital Signs Temp 98.0 F 12/09/17 16:08 Pulse 93 12/09/17 16:08 Resp 18 12/09/17 16:08 BP 103/62 12/09/17 16:08 Pulse Ox 96 12/09/17 16:08 Intake & Output 12/08/17 12/09/17 12/09/17 18:59 06:59 18:59 Intake Total 900 120 Output Total 600 Balance 900 -480 Intake: Oral 900 120 Output: Urine 600 Other: # Bowel Movements 2 Active Medications: Current Medications Acetaminophen (Tylenol) 650 mg PO Q4HR PRN PRN Reason: Mild Pain / Temp above 100 Stop: 02/01/18 19:53 Last Admin: 12/04/17 21:18 Dose: 650 mg Al Hydrox/Mg Hydrox/Simethicone (Maalox) 30 ml PO Q4HR PRN PRN Reason: GI DISTRESS Stop: 02/01/18 19:53 Atorvastatin Calcium (Lipitor) 20 mg PO HS JOSE DANIEL; Protocol Stop: 02/02/18 20:59 Last Admin: 12/08/17 20:49 Dose: 20 mg Bethanechol Chloride (Urecholine) 50 mg PO QDAC JOSE DANIEL Stop: 02/05/18 08:59 Last Admin: 12/09/17 06:51 Dose: 50 mg Gabapentin (Neurontin) 100 mg PO DAILY JOSE DANIEL Stop: 02/02/18 08:59 Last Admin: 12/09/17 08:56 Dose: 100 mg Lamotrigine (Lamictal) 75 mg PO BID JOSE DANIEL; Protocol Stop: 02/03/18 08:59 Last Admin: 12/09/17 16:52 Dose: 75 mg Lisinopril (Zestril) 10 mg PO DAILY JOSE DANIEL Stop: 02/02/18 08:59 Last Admin: 12/09/17 08:57 Dose: 10 mg Lorazepam (Ativan) 0.5 mg PO Q4HR PRN; Protocol PRN Reason: Anxiety/agitation Stop: 01/02/18 19:53 Last Admin: 12/09/17 16:52 Dose: 0.5 mg Metformin HCl (Glucophage) 500 mg PO BIDWM JOSE DANIEL Stop: 02/02/18 07:59 Last Admin: 12/09/17 08:55 Dose: 500 mg Multivitamins/Vitamin C (Theragran) 1 tab PO DAILY JOSE DANIEL Stop: 02/02/18 08:59 Last Admin: 12/09/17 08:55 Dose: 1 tab Olanzapine (Zyprexa) 10 mg PO Q12HR JOSE DANIEL; Protocol Stop: 02/02/18 08:59 Last Admin: 12/09/17 08:56 Dose: 10 mg Tamsulosin HCl (Flomax) 0.4 mg PO HS JOSE DANIEL Stop: 02/02/18 20:59 Last Admin: 12/08/17 20:50 Dose: 0.4 mg Trazodone HCl (Desyrel) 100 mg PO HS JOSE DANIEL; Protocol Stop: 02/05/18 20:59 Last Admin: 12/08/17 20:50 Dose: 100 mg Venlafaxine HCl (Effexor Xr) 150 mg PO DAILY JOSE DANIEL; Protocol Stop: 02/07/18 08:59 Last Admin: 12/09/17 08:55 Dose: 150 mg Zolpidem Tartrate (Ambien) 5 mg PO HS PRN PRN Reason: Insomnia Stop: 02/01/18 19:53 Last Admin: 12/09/17 00:10 Dose: 5 mg General: demented HEENT: NC/AT, PERRLA, EOMI, anicteric sclerae, throat clear Neck: No JVD, No thyromegaly, +2 carotid pulse wo bruit, No LAD Cardiovascular: RRR, Normal S1, Normal S2, without murmur Abdomen: soft, non-tender, tender, thin, globular, non-distended Extremities: clear Neurological: no change Internal Medicine Assmt/Plan - Assessment Assessment: 1.HYPERLIPIDEMIA. 2.BPH. 3.HTN. 4.DEMENTIA. - Plan Plan: CONTINUE ON CURRENT MEDICATION AND DIET. Nutritional Asmnt/Malnutr-PDOC - Dietary Evaluation Malnutrition Findings (Please click <Entered> for more info): Nutritional Asmnt/Malnutrition Start: 12/06/17 10: 47 Text: Status: Complete Freq: Protocol: Document 12/06/17 14:24 LCHENG (Rec: 12/06/17 14:37 [email or web address]) Nutritional Asmnt/Malnutrition Patient General Information Nutritional Screening Moderate Risk Diagnosis depresion Pertinent Medical Hx/Surgical Hx HTN, hyperlipidemia, BPH, dementia, psychosis Subjective Information Pt seen lying in bed at time of visit, finished lunch. Pt stated good appetite, he had big breakfast this morning, not hungry at this time. Advice pt to request snacks in the afternoon as needed. Pt verberlly understood. Current Diet Order/ Nutrition Support STEPHAN Pertinent Medications glucophage, theragran Pertinent Labs 12/05 Cl 108, BUN 30, Cr 1.5, GFR 59.7, Glucose 116 Nutritional Hx/Data Height 1.7 m Height (Calculated Centimeters) 170.2 Current Weight (lbs) 70.307 kg Weight (Calculated Kilograms) 70.3 Weight (Calculated Grams) 20145.8 [place] Body Weight 148 Body Mass Index (BMI) 24.3 Weight Status Approriate GI Symptoms GI Symptoms None Last BM 12/06 Difficult in: None Skin Integrity/Comment: intact Current %PO Good (75-100%) Estimated Nutritional Goals BEE in Kcals: Using Current wt Calories/Kcals/Kg 25-30 Kcals Calculated 2315-2888 Protein: Using Current wt Protein g/k.7 Protein Calculated 50 Fluid: ml 1750-2100ml (1ml/kcal) Nutritional Problem 1. Problem Problem altered nutrition related labs Etiology impaired renal function Signs/Symptoms: BUN 30, Cr 1.5, GFR 59.7 Malnutrition Alert Is there a minimum of two criteria No selected? Query Text:Check all the applicable criteria. A minimum of two criteria are recommended for diagnosis of either severe or non-severe malnutrition. Malnutrition Related to Morbid Obesity Malnutrition related to morbid obesity No Intervention/Recommendation Comments 1. Continue with STEPHAN diet as ordered. Monitor renal labs. 2. Monitor PO intake, wt, labs and skin integrity 3. F/U as low risk in 7 days, 12/13 Expected Outcomes/Goals Expected Outcomes/Goals 1. PO intake to meet at least 75% of nutritional needs. 2. Wt stability, skin to remain intact, labs to approach WNL.
[2017-12-09] MEDS: Atorvastatin Calcium 10 MG TAB PO SCH (21:03)
--- NOTE | 2017-12-10 07:12 | Progress Notes ---
DATE: SUBJECTIVE: Chart reviewed and the patient interviewed. Also discussed the patient's condition with the staff and reviewed records and labs. The patient is still anxious and he is still in a depressed mood. The patient also is complaining of severe anxiety and of insomnia. The patient also is still depressed and interacting minimally with others. He also is asking for more Ativan and also for getting a " ." The patient also have at times crying episodes and also feeling depressed. Otherwise, the patient continues to take Effexor and Zyprexa with no side effects. ASSESSMENT: The patient is still depressed and anxious. TREATMENT PLAN: We will increase Effexor to 150 mg every day. Also, we will continue Zyprexa in a dose of 10 mg twice a day and continue to follow up closely. [facility]# [id number]
[2017-12-10] MEDS: Multivitamin Tab PO SCH (08:30)
--- NOTE | 2017-12-10 19:24 | Progress Notes ---
DATE: 12/10/2017 SUBJECTIVE: Chart reviewed and the patient interviewed. Also discussed the patient's condition with the staff and reviewed records and labs. The patient continued to be anxious and asking for anxiety medications. He also is still depressed and he is still med seeking. The patient also is still having difficulty with his mood. He is having mood swings, but seems to be less isolative and interacting slightly more. The patient is compliant with taking his medications with no side effects of medications. ASSESSMENT: The patient is still anxious. TREATMENT PLAN: We will continue to monitor his behavior and his condition closely. Also, continue Zyprexa 10 mg twice a day. Also, the patient is not complaining of insomnia and it seems that his sleeping is slightly better. JOB# [id number]
--- NOTE | 2017-12-10 20:38 | Internal Medicine Prog Note ---
Internal Medicine Subjective - Subjective Service Date: 12/10/17 Patient seen and examined:: with staff Patient is:: awake, in bed, talking Per staff patient has:: no adverse event (HE DENIES ANY PAIN OR SOB.) Internal Medicine Objective - Results Result Diagrams: 12/05/17 07:25 12/05/17 07:25 Recent Labs: Laboratory Last Values WBC 6.2 Th/cmm (4.8-10.8) 12/05/17 07:25 RBC 4.67 Mil/cmm (3.80-5.80) 12/05/17 07:25 Hgb 13.6 gm/dL (12-16) 12/05/17 07:25 Hct 40.3 % (41.0-60) L 12/05/17 07:25 MCV 86.4 fl (80-99) 12/05/17 07:25 MCH 29.1 pg (27.0-31.0) 12/05/17 07:25 MCHC Differential 33.7 pg (28.0-36.0) 12/05/17 07:25 RDW 13.3 % (11.5-20.0) 12/05/17 07:25 Plt Count 290 Th/cmm (150-400) 12/05/17 07:25 MPV 6.6 fl 12/05/17 07:25 Neutrophils % 54.9 % (40.0-80.0) 12/05/17 07:25 Lymphocytes % 33.3 % (20.0-50.0) 12/05/17 07:25 Monocytes % 7.5 % (2.0-10.0) 12/05/17 07:25 Eosinophils % 2.7 % (0.0-5.0) 12/05/17 07:25 Basophils % 1.6 % (0.0-2.0) 12/05/17 07:25 Sodium 141 mEq/L (136-145) 12/05/17 07:25 Potassium 4.1 mEq/L (3.5-5.1) 12/05/17 07:25 Chloride 108 mEq/L (98-107) H 12/05/17 07:25 Carbon Dioxide 23.7 mEq/L (21.0-31.0) 12/05/17 07:25 Anion Gap 13.4 (7.0-16.0) 12/05/17 07:25 BUN 30 mg/dL (7-25) H 12/05/17 07:25 Creatinine 1.5 mg/dL (0.7-1.3) H 12/05/17 07:25 Est GFR ( Amer) 59.7 ml/min (>90) 12/05/17 07:25 Est GFR (Non-Af Amer) 49.3 ml/min 12/05/17 07:25 BUN/Creatinine Ratio 20.0 12/05/17 07:25 Glucose 116 mg/dL (70-105) H 12/05/17 07:25 Calcium 9.6 mg/dL (8.6-10.3) 12/05/17 07:25 Total Bilirubin 0.5 mg/dL (0.3-1.0) 12/05/17 07:25 AST 22 U/L (13-39) 12/05/17 07:25 ALT 14 U/L (7-52) 12/05/17 07:25 Alkaline Phosphatase 71 U/L (34-104) 12/05/17 07:25 Total Protein 7.2 gm/dL (6.0-8.3) 12/05/17 07:25 Albumin 4.2 gm/dL (4.2-5.5) 12/05/17 07:25 Globulin 3.0 gm/dL 12/05/17 07:25 Albumin/Globulin Ratio 1.4 (1.0-1.8) 12/05/17 07:25 TSH 5.17 uIU/ml (0.34-5.60) 12/05/17 07:25 - Physical Exam Vitals and I&O: Vital Signs Temp 97.5 F 12/10/17 15:13 Pulse 98 12/10/17 15:13 Resp 18 12/10/17 15:13 BP 108/71 12/10/17 15:13 Pulse Ox 95 12/10/17 15:13 Intake & Output 12/10/17 12/10/17 12/11/17 06:59 18:59 06:59 Intake Total 360 1200 Output Total 500 800 Balance -140 400 Intake: Oral 360 1200 Output: Urine 500 800 Other: # Voids 1 # Bowel Movements 0 Active Medications: Current Medications Acetaminophen (Tylenol) 650 mg PO Q4HR PRN PRN Reason: Mild Pain / Temp above 100 Stop: 02/01/18 19:53 Last Admin: 12/04/17 21:18 Dose: 650 mg Al Hydrox/Mg Hydrox/Simethicone (Maalox) 30 ml PO Q4HR PRN PRN Reason: GI DISTRESS Stop: 02/01/18 19:53 Atorvastatin Calcium (Lipitor) 20 mg PO HS JOSE DANIEL; Protocol Stop: 02/02/18 20:59 Last Admin: 12/09/17 21:03 Dose: 20 mg Bethanechol Chloride (Urecholine) 50 mg PO QDAC JOSE DANIEL Stop: 02/05/18 08:59 Last Admin: 12/10/17 06:46 Dose: Not Given Gabapentin (Neurontin) 100 mg PO DAILY JOSE DANIEL Stop: 02/02/18 08:59 Last Admin: 12/10/17 08:29 Dose: 100 mg Lamotrigine (Lamictal) 75 mg PO BID JOSE DANIEL; Protocol Stop: 02/03/18 08:59 Last Admin: 12/10/17 17:01 Dose: 75 mg Lisinopril (Zestril) 10 mg PO DAILY JOSE DANIEL Stop: 02/02/18 08:59 Last Admin: 12/10/17 08:30 Dose: 10 mg Lorazepam (Ativan) 0.5 mg PO Q4HR PRN; Protocol PRN Reason: Anxiety/agitation Stop: 01/02/18 19:53 Last Admin: 12/10/17 17:01 Dose: 0.5 mg Metformin HCl (Glucophage) 500 mg PO BIDWM JOSE DANIEL Stop: 02/02/18 07:59 Last Admin: 12/10/17 17:03 Dose: 500 mg Multivitamins/Vitamin C (Theragran) 1 tab PO DAILY JOSE DANIEL Stop: 02/02/18 08:59 Last Admin: 12/10/17 08:30 Dose: 1 tab Olanzapine (Zyprexa) 10 mg PO Q12HR JOSE DANIEL; Protocol Stop: 02/02/18 08:59 Last Admin: 12/10/17 08:30 Dose: 10 mg Tamsulosin HCl (Flomax) 0.4 mg PO HS JOSE DANIEL Stop: 02/02/18 20:59 Last Admin: 12/09/17 21:03 Dose: 0.4 mg Trazodone HCl (Desyrel) 100 mg PO HS JOSE DANIEL; Protocol Stop: 02/05/18 20:59 Last Admin: 12/09/17 21:03 Dose: 100 mg Venlafaxine HCl (Effexor Xr) 150 mg PO DAILY JOSE DANIEL; Protocol Stop: 02/07/18 08:59 Last Admin: 12/10/17 08:29 Dose: 150 mg Zolpidem Tartrate (Ambien) 5 mg PO HS PRN PRN Reason: Insomnia Stop: 02/01/18 19:53 Last Admin: 12/09/17 21:03 Dose: 5 mg General: demented HEENT: NC/AT, PERRLA, EOMI, anicteric sclerae, throat clear Neck: No JVD, No thyromegaly, +2 carotid pulse wo bruit, No LAD Cardiovascular: RRR, Normal S1, Normal S2, without murmur Abdomen: soft, non-tender, tender, thin, globular, non-distended Extremities: clear Neurological: no change Internal Medicine Assmt/Plan - Assessment Assessment: 1.HYPERLIPIDEMIA. 2.BPH. 3.HTN. 4.DEMENTIA. - Plan Plan: CONTINUE ON CURRENT MEDICATION AND DIET. Nutritional Asmnt/Malnutr-PDOC - Dietary Evaluation Malnutrition Findings (Please click <Entered> for more info): Nutritional Asmnt/Malnutrition Start: 12/06/17 10: 47 Text: Status: Complete Freq: Protocol: Document 12/06/17 14:24 LCHENG (Rec: 12/06/17 14:37 [email or web address]) Nutritional Asmnt/Malnutrition Patient General Information Nutritional Screening Moderate Risk Diagnosis depresion Pertinent Medical Hx/Surgical Hx HTN, hyperlipidemia, BPH, dementia, psychosis Subjective Information Pt seen lying in bed at time of visit, finished lunch. Pt stated good appetite, he had big breakfast this morning, not hungry at this time. Advice pt to request snacks in the afternoon as needed. Pt verberlly understood. Current Diet Order/ Nutrition Support STEPHAN Pertinent Medications glucophage, theragran Pertinent Labs 12/05 Cl 108, BUN 30, Cr 1.5, GFR 59.7, Glucose 116 Nutritional Hx/Data Height 1.7 m Height (Calculated Centimeters) 170.2 Current Weight (lbs) 70.307 kg Weight (Calculated Kilograms) 70.3 Weight (Calculated Grams) 71964.8 [place] Body Weight 148 Body Mass Index (BMI) 24.3 Weight Status Approriate GI Symptoms GI Symptoms None Last BM 12/06 Difficult in: None Skin Integrity/Comment: intact Current %PO Good (75-100%) Estimated Nutritional Goals BEE in Kcals: Using Current wt Calories/Kcals/Kg 25-30 Kcals Calculated 7571-3403 Protein: Using Current wt Protein g/k.7 Protein Calculated 50 Fluid: ml 1750-2100ml (1ml/kcal) Nutritional Problem 1. Problem Problem altered nutrition related labs Etiology impaired renal function Signs/Symptoms: BUN 30, Cr 1.5, GFR 59.7 Malnutrition Alert Is there a minimum of two criteria No selected? Query Text:Check all the applicable criteria. A minimum of two criteria are recommended for diagnosis of either severe or non-severe malnutrition. Malnutrition Related to Morbid Obesity Malnutrition related to morbid obesity No Intervention/Recommendation Comments 1. Continue with STEPHAN diet as ordered. Monitor renal labs. 2. Monitor PO intake, wt, labs and skin integrity 3. F/U as low risk in 7 days, 12/13 Expected Outcomes/Goals Expected Outcomes/Goals 1. PO intake to meet at least 75% of nutritional needs. 2. Wt stability, skin to remain intact, labs to approach WNL.
[2017-12-10] MEDS: Atorvastatin Calcium 10 MG TAB PO SCH (21:10)
[2017-12-11] MEDS: Multivitamin Tab PO SCH (08:51)
--- NOTE | 2017-12-11 20:32 | Internal Medicine Prog Note ---
Internal Medicine Subjective - Subjective Service Date: 12/11/17 Patient seen and examined:: with staff Patient is:: awake, in bed, talking Per staff patient has:: no adverse event (HE DENIES ANY PAIN OR SOB.) Internal Medicine Objective - Results Result Diagrams: 12/05/17 07:25 12/05/17 07:25 Recent Labs: Laboratory Last Values WBC 6.2 Th/cmm (4.8-10.8) 12/05/17 07:25 RBC 4.67 Mil/cmm (3.80-5.80) 12/05/17 07:25 Hgb 13.6 gm/dL (12-16) 12/05/17 07:25 Hct 40.3 % (41.0-60) L 12/05/17 07:25 MCV 86.4 fl (80-99) 12/05/17 07:25 MCH 29.1 pg (27.0-31.0) 12/05/17 07:25 MCHC Differential 33.7 pg (28.0-36.0) 12/05/17 07:25 RDW 13.3 % (11.5-20.0) 12/05/17 07:25 Plt Count 290 Th/cmm (150-400) 12/05/17 07:25 MPV 6.6 fl 12/05/17 07:25 Neutrophils % 54.9 % (40.0-80.0) 12/05/17 07:25 Lymphocytes % 33.3 % (20.0-50.0) 12/05/17 07:25 Monocytes % 7.5 % (2.0-10.0) 12/05/17 07:25 Eosinophils % 2.7 % (0.0-5.0) 12/05/17 07:25 Basophils % 1.6 % (0.0-2.0) 12/05/17 07:25 Sodium 141 mEq/L (136-145) 12/05/17 07:25 Potassium 4.1 mEq/L (3.5-5.1) 12/05/17 07:25 Chloride 108 mEq/L (98-107) H 12/05/17 07:25 Carbon Dioxide 23.7 mEq/L (21.0-31.0) 12/05/17 07:25 Anion Gap 13.4 (7.0-16.0) 12/05/17 07:25 BUN 30 mg/dL (7-25) H 12/05/17 07:25 Creatinine 1.5 mg/dL (0.7-1.3) H 12/05/17 07:25 Est GFR ( Amer) 59.7 ml/min (>90) 12/05/17 07:25 Est GFR (Non-Af Amer) 49.3 ml/min 12/05/17 07:25 BUN/Creatinine Ratio 20.0 12/05/17 07:25 Glucose 116 mg/dL (70-105) H 12/05/17 07:25 Calcium 9.6 mg/dL (8.6-10.3) 12/05/17 07:25 Total Bilirubin 0.5 mg/dL (0.3-1.0) 12/05/17 07:25 AST 22 U/L (13-39) 12/05/17 07:25 ALT 14 U/L (7-52) 12/05/17 07:25 Alkaline Phosphatase 71 U/L (34-104) 12/05/17 07:25 Total Protein 7.2 gm/dL (6.0-8.3) 12/05/17 07:25 Albumin 4.2 gm/dL (4.2-5.5) 12/05/17 07:25 Globulin 3.0 gm/dL 12/05/17 07:25 Albumin/Globulin Ratio 1.4 (1.0-1.8) 12/05/17 07:25 TSH 5.17 uIU/ml (0.34-5.60) 12/05/17 07:25 - Physical Exam Vitals and I&O: Vital Signs Temp 98 F 12/11/17 20:00 Pulse 90 12/11/17 20:00 Resp 19 12/11/17 20:00 BP 113/64 12/11/17 20:00 Pulse Ox 96 12/11/17 20:00 Intake & Output 12/11/17 12/11/17 12/12/17 06:59 18:59 06:59 Intake Total 600 1200 Output Total 1000 200 Balance -400 1000 Intake: Oral 600 1200 Output: Urine 1000 200 Other: # Voids 1 # Bowel Movements 0 0 Active Medications: Current Medications Acetaminophen (Tylenol) 650 mg PO Q4HR PRN PRN Reason: Mild Pain / Temp above 100 Stop: 02/01/18 19:53 Last Admin: 12/11/17 08:46 Dose: 650 mg Al Hydrox/Mg Hydrox/Simethicone (Maalox) 30 ml PO Q4HR PRN PRN Reason: GI DISTRESS Stop: 02/01/18 19:53 Last Admin: 12/11/17 19:50 Dose: 30 ml Atorvastatin Calcium (Lipitor) 20 mg PO HS JOSE DANIEL; Protocol Stop: 02/02/18 20:59 Last Admin: 12/10/17 21:10 Dose: 20 mg Bethanechol Chloride (Urecholine) 50 mg PO QDAC JOSE DANIEL Stop: 02/05/18 08:59 Last Admin: 12/11/17 06:30 Dose: 50 mg Escitalopram Oxalate (Lexapro) 10 mg PO HS JOSE DANIEL; Protocol Stop: 02/09/18 20:59 Gabapentin (Neurontin) 100 mg PO DAILY JOSE DANIEL Stop: 02/02/18 08:59 Last Admin: 12/11/17 08:50 Dose: 100 mg Lamotrigine (Lamictal) 75 mg PO BID JOSE DANIEL; Protocol Stop: 02/03/18 08:59 Last Admin: 12/11/17 17:18 Dose: 75 mg Lisinopril (Zestril) 10 mg PO DAILY JOSE DANIEL Stop: 02/02/18 08:59 Last Admin: 12/11/17 08:50 Dose: 10 mg Lorazepam (Ativan) 0.5 mg PO Q4HR PRN; Protocol PRN Reason: Anxiety/agitation Stop: 01/02/18 19:53 Last Admin: 12/11/17 14:21 Dose: 0.5 mg Metformin HCl (Glucophage) 500 mg PO BIDWM JOSE DANIEL Stop: 02/02/18 07:59 Last Admin: 12/11/17 17:18 Dose: 500 mg Multivitamins/Vitamin C (Theragran) 1 tab PO DAILY JOSE DANIEL Stop: 02/02/18 08:59 Last Admin: 12/11/17 08:51 Dose: 1 tab Olanzapine (Zyprexa) 10 mg PO Q12HR JOSE DANIEL; Protocol Stop: 02/02/18 08:59 Last Admin: 12/11/17 08:51 Dose: 10 mg Tamsulosin HCl (Flomax) 0.4 mg PO HS JOSE DANIEL Stop: 02/02/18 20:59 Last Admin: 12/10/17 21:10 Dose: 0.4 mg Trazodone HCl (Desyrel) 100 mg PO HS JOSE DANIEL; Protocol Stop: 02/05/18 20:59 Last Admin: 12/10/17 21:10 Dose: 100 mg Venlafaxine HCl (Effexor Xr) 150 mg PO DAILY JOSE DANIEL; Protocol Stop: 02/07/18 08:59 Last Admin: 12/11/17 08:48 Dose: 150 mg Zolpidem Tartrate (Ambien) 5 mg PO HS PRN PRN Reason: Insomnia Stop: 02/01/18 19:53 Last Admin: 12/10/17 21:32 Dose: 5 mg General: demented HEENT: NC/AT, PERRLA, EOMI, anicteric sclerae, throat clear Neck: No JVD, No thyromegaly, +2 carotid pulse wo bruit, No LAD Cardiovascular: RRR, Normal S1, Normal S2, without murmur Abdomen: soft, non-tender, tender, thin, globular, non-distended Extremities: clear Neurological: no change Internal Medicine Assmt/Plan - Assessment Assessment: 1.HYPERLIPIDEMIA. 2.BPH. 3.HTN. 4.DEMENTIA. - Plan Plan: CONTINUE ON CURRENT MEDICATION AND DIET. Nutritional Asmnt/Malnutr-PDOC - Dietary Evaluation Malnutrition Findings (Please click <Entered> for more info): Nutritional Asmnt/Malnutrition Start: 12/06/17 10: 47 Text: Status: Complete Freq: Protocol: Document 12/06/17 14:24 [email or web address] (Rec: 12/06/17 14:37 ROBERT [email or web address]) Nutritional Asmnt/Malnutrition Patient General Information Nutritional Screening Moderate Risk Diagnosis depresion Pertinent Medical Hx/Surgical Hx HTN, hyperlipidemia, BPH, dementia, psychosis Subjective Information Pt seen lying in bed at time of visit, finished lunch. Pt stated good appetite, he had big breakfast this morning, not hungry at this time. Advice pt to request snacks in the afternoon as needed. Pt verberlly understood. Current Diet Order/ Nutrition Support STEPHAN Pertinent Medications glucophage, theragran Pertinent Labs 12/05 Cl 108, BUN 30, Cr 1.5, GFR 59.7, Glucose 116 Nutritional Hx/Data Height 1.7 m Height (Calculated Centimeters) 170.2 Current Weight (lbs) 70.307 kg Weight (Calculated Kilograms) 70.3 Weight (Calculated Grams) 01362.8 [place] Body Weight 148 Body Mass Index (BMI) 24.3 Weight Status Approriate GI Symptoms GI Symptoms None Last BM 12/06 Difficult in: None Skin Integrity/Comment: intact Current %PO Good (75-100%) Estimated Nutritional Goals BEE in Kcals: Using Current wt Calories/Kcals/Kg 25-30 Kcals Calculated 5650-3302 Protein: Using Current wt Protein g/k.7 Protein Calculated 50 Fluid: ml 1750-2100ml (1ml/kcal) Nutritional Problem 1. Problem Problem altered nutrition related labs Etiology impaired renal function Signs/Symptoms: BUN 30, Cr 1.5, GFR 59.7 Malnutrition Alert Is there a minimum of two criteria No selected? Query Text:Check all the applicable criteria. A minimum of two criteria are recommended for diagnosis of either severe or non-severe malnutrition. Malnutrition Related to Morbid Obesity Malnutrition related to morbid obesity No Intervention/Recommendation Comments 1. Continue with STEPHAN diet as ordered. Monitor renal labs. 2. Monitor PO intake, wt, labs and skin integrity 3. F/U as low risk in 7 days, 12/13 Expected Outcomes/Goals Expected Outcomes/Goals 1. PO intake to meet at least 75% of nutritional needs. 2. Wt stability, skin to remain intact, labs to approach WNL.
[2017-12-11] MEDS: Atorvastatin Calcium 10 MG TAB PO SCH (20:52)
--- NOTE | 2017-12-11 22:29 | Progress Notes ---
DATE: 12/11/2017 Chart reviewed and the patient interviewed. Also discussed the patient's condition with the staff and reviewed records and labs. The patient continued to be anxious. The patient also is still at times demanding and repetitive for his demands and asking the same questions over and over. He also is still requesting to change his catheter and informed the staff, tell it to Dr. Lizarraga and know about the catheter and I am not sure if it can be changed or not at this time. At the same time, Dr. Lizarraga to be informed. The patient is compliant with taking his medications and no side effects of Effexor or Zyprexa. Effexor was increased to 150 mg. We will continue same dose and continue to work on his ineffective coping and followup. ADDENDUM The patient added that he was feeling severely depressed and suicidal yesterday and severely anxious. We will add Lexapro in a dose of 10 mg at bedtime. Side effects, benefits and alternatives explained to the patient and the patient agreed to take it. JOB# [id number]
--- NOTE | 2017-12-12 03:33 | Progress Notes ---
DATE: 12/11/2017 ADDENDUM The patient added that he was feeling severely depressed and suicidal yesterday and severely anxious. We will add Lexapro in a dose of 10 mg at bedtime. Side effects, benefits and alternatives explained to the patient and the patient agreed to take it. JOB# [id number]
[2017-12-12] MEDS: Multivitamin Tab PO SCH (08:37)
--- NOTE | 2017-12-12 19:15 | Internal Medicine Prog Note ---
Internal Medicine Subjective - Subjective Service Date: 12/12/17 Patient seen and examined:: with staff Patient is:: awake, in bed, talking Per staff patient has:: no adverse event (HE DENIES ANY PAIN OR SOB.) Internal Medicine Objective - Results Result Diagrams: 12/05/17 07:25 12/05/17 07:25 Recent Labs: Laboratory Last Values WBC 6.2 Th/cmm (4.8-10.8) 12/05/17 07:25 RBC 4.67 Mil/cmm (3.80-5.80) 12/05/17 07:25 Hgb 13.6 gm/dL (12-16) 12/05/17 07:25 Hct 40.3 % (41.0-60) L 12/05/17 07:25 MCV 86.4 fl (80-99) 12/05/17 07:25 MCH 29.1 pg (27.0-31.0) 12/05/17 07:25 MCHC Differential 33.7 pg (28.0-36.0) 12/05/17 07:25 RDW 13.3 % (11.5-20.0) 12/05/17 07:25 Plt Count 290 Th/cmm (150-400) 12/05/17 07:25 MPV 6.6 fl 12/05/17 07:25 Neutrophils % 54.9 % (40.0-80.0) 12/05/17 07:25 Lymphocytes % 33.3 % (20.0-50.0) 12/05/17 07:25 Monocytes % 7.5 % (2.0-10.0) 12/05/17 07:25 Eosinophils % 2.7 % (0.0-5.0) 12/05/17 07:25 Basophils % 1.6 % (0.0-2.0) 12/05/17 07:25 Sodium 141 mEq/L (136-145) 12/05/17 07:25 Potassium 4.1 mEq/L (3.5-5.1) 12/05/17 07:25 Chloride 108 mEq/L (98-107) H 12/05/17 07:25 Carbon Dioxide 23.7 mEq/L (21.0-31.0) 12/05/17 07:25 Anion Gap 13.4 (7.0-16.0) 12/05/17 07:25 BUN 30 mg/dL (7-25) H 12/05/17 07:25 Creatinine 1.5 mg/dL (0.7-1.3) H 12/05/17 07:25 Est GFR ( Amer) 59.7 ml/min (>90) 12/05/17 07:25 Est GFR (Non-Af Amer) 49.3 ml/min 12/05/17 07:25 BUN/Creatinine Ratio 20.0 12/05/17 07:25 Glucose 116 mg/dL (70-105) H 12/05/17 07:25 Calcium 9.6 mg/dL (8.6-10.3) 12/05/17 07:25 Total Bilirubin 0.5 mg/dL (0.3-1.0) 12/05/17 07:25 AST 22 U/L (13-39) 12/05/17 07:25 ALT 14 U/L (7-52) 12/05/17 07:25 Alkaline Phosphatase 71 U/L (34-104) 12/05/17 07:25 Total Protein 7.2 gm/dL (6.0-8.3) 12/05/17 07:25 Albumin 4.2 gm/dL (4.2-5.5) 12/05/17 07:25 Globulin 3.0 gm/dL 12/05/17 07:25 Albumin/Globulin Ratio 1.4 (1.0-1.8) 12/05/17 07:25 TSH 5.17 uIU/ml (0.34-5.60) 12/05/17 07:25 - Physical Exam Vitals and I&O: Vital Signs Temp 98.4 F 12/12/17 16:16 Pulse 103 12/12/17 16:16 Resp 18 12/12/17 16:16 BP 115/75 12/12/17 16:16 Pulse Ox 97 12/12/17 16:16 Intake & Output 12/12/17 12/12/17 12/13/17 06:59 18:59 06:59 Intake Total 120 1200 Output Total 450 600 Balance -330 600 Intake: Oral 120 1200 Output: Urine 450 600 Active Medications: Current Medications Acetaminophen (Tylenol) 650 mg PO Q4HR PRN PRN Reason: Mild Pain / Temp above 100 Stop: 02/01/18 19:53 Last Admin: 12/11/17 08:46 Dose: 650 mg Al Hydrox/Mg Hydrox/Simethicone (Maalox) 30 ml PO Q4HR PRN PRN Reason: GI DISTRESS Stop: 02/01/18 19:53 Last Admin: 12/11/17 19:50 Dose: 30 ml Atorvastatin Calcium (Lipitor) 20 mg PO HS [facility]; Protocol Stop: 02/02/18 20:59 Last Admin: 12/11/17 20:52 Dose: 20 mg Bethanechol Chloride (Urecholine) 50 mg PO QDAC JOSE DANIEL Stop: 02/05/18 08:59 Last Admin: 12/12/17 07:30 Dose: Not Given Escitalopram Oxalate (Lexapro) 10 mg PO HS [facility]; Protocol Stop: 02/09/18 20:59 Last Admin: 12/11/17 20:52 Dose: 10 mg Gabapentin (Neurontin) 100 mg PO DAILY JOSE DANIEL Stop: 02/02/18 08:59 Last Admin: 12/12/17 08:36 Dose: 100 mg Lamotrigine (Lamictal) 75 mg PO BID [facility]; Protocol Stop: 02/03/18 08:59 Last Admin: 12/12/17 16:06 Dose: 75 mg Lisinopril (Zestril) 10 mg PO DAILY [facility] Stop: 02/02/18 08:59 Last Admin: 12/12/17 08:37 Dose: 10 mg Lorazepam (Ativan) 0.5 mg PO Q4HR PRN; Protocol PRN Reason: Anxiety/agitation Stop: 01/02/18 19:53 Last Admin: 12/12/17 16:06 Dose: 0.5 mg Metformin HCl (Glucophage) 500 mg PO BIDWM JOSE DANIEL Stop: 02/02/18 07:59 Last Admin: 12/12/17 08:36 Dose: 500 mg Multivitamins/Vitamin C (Theragran) 1 tab PO DAILY [facility] Stop: 02/02/18 08:59 Last Admin: 12/12/17 08:37 Dose: 1 tab Olanzapine (Zyprexa) 10 mg PO Q12HR JOSE DANIEL; Protocol Stop: 02/02/18 08:59 Last Admin: 12/12/17 08:37 Dose: 10 mg Tamsulosin HCl (Flomax) 0.4 mg PO HS [facility] Stop: 02/02/18 20:59 Last Admin: 12/11/17 20:54 Dose: 0.4 mg Trazodone HCl (Desyrel) 100 mg PO HS JOSE DANIEL; Protocol Stop: 02/05/18 20:59 Last Admin: 12/11/17 21:10 Dose: 100 mg Venlafaxine HCl (Effexor Xr) 150 mg PO DAILY JOSE DANIEL; Protocol Stop: 02/07/18 08:59 Last Admin: 12/12/17 08:37 Dose: 150 mg Zolpidem Tartrate (Ambien) 5 mg PO HS PRN PRN Reason: Insomnia Stop: 02/01/18 19:53 Last Admin: 12/11/17 21:10 Dose: 5 mg General: demented HEENT: NC/AT, PERRLA, EOMI, anicteric sclerae, throat clear Neck: No JVD, No thyromegaly, +2 carotid pulse wo bruit, No LAD Cardiovascular: RRR, Normal S1, Normal S2, without murmur Abdomen: soft, non-tender, tender, thin, globular, non-distended Extremities: clear Neurological: no change Internal Medicine Assmt/Plan - Assessment Assessment: 1.HYPERLIPIDEMIA. 2.BPH. 3.HTN. 4.DEMENTIA. - Plan Plan: CONTINUE ON CURRENT MEDICATION AND DIET. Nutritional Asmnt/Malnutr-PDOC - Dietary Evaluation Malnutrition Findings (Please click <Entered> for more info): Nutritional Asmnt/Malnutrition Start: 12/06/17 10: 47 Text: Status: Complete Freq: Protocol: Document 12/06/17 14:24 [email or web address] (Rec: 12/06/17 14:37 FLOWER [email or web address]) Nutritional Asmnt/Malnutrition Patient General Information Nutritional Screening Moderate Risk Diagnosis depresion Pertinent Medical Hx/Surgical Hx HTN, hyperlipidemia, BPH, dementia, psychosis Subjective Information Pt seen lying in bed at time of visit, finished lunch. Pt stated good appetite, he had big breakfast this morning, not hungry at this time. Advice pt to request snacks in the afternoon as needed. Pt verberlly understood. Current Diet Order/ Nutrition Support STEPHAN Pertinent Medications glucophage, theragran Pertinent Labs 12/05 Cl 108, BUN 30, Cr 1.5, GFR 59.7, Glucose 116 Nutritional Hx/Data Height 1.7 m Height (Calculated Centimeters) 170.2 Current Weight (lbs) 70.307 kg Weight (Calculated Kilograms) 70.3 Weight (Calculated Grams) 84881.8 [place] Body Weight 148 Body Mass Index (BMI) 24.3 Weight Status Approriate GI Symptoms GI Symptoms None Last BM 12/06 Difficult in: None Skin Integrity/Comment: intact Current %PO Good (75-100%) Estimated Nutritional Goals BEE in Kcals: Using Current wt Calories/Kcals/Kg 25-30 Kcals Calculated 3401-6114 Protein: Using Current wt Protein g/k.7 Protein Calculated 50 Fluid: ml 1750-2100ml (1ml/kcal) Nutritional Problem 1. Problem Problem altered nutrition related labs Etiology impaired renal function Signs/Symptoms: BUN 30, Cr 1.5, GFR 59.7 Malnutrition Alert Is there a minimum of two criteria No selected? Query Text:Check all the applicable criteria. A minimum of two criteria are recommended for diagnosis of either severe or non-severe malnutrition. Malnutrition Related to Morbid Obesity Malnutrition related to morbid obesity No Intervention/Recommendation Comments 1. Continue with STEPHAN diet as ordered. Monitor renal labs. 2. Monitor PO intake, wt, labs and skin integrity 3. F/U as low risk in 7 days, 12/13 Expected Outcomes/Goals Expected Outcomes/Goals 1. PO intake to meet at least 75% of nutritional needs. 2. Wt stability, skin to remain intact, labs to approach WNL.
[2017-12-12] MEDS: Atorvastatin Calcium 10 MG TAB PO SCH (21:12)
--- NOTE | 2017-12-13 03:23 | Progress Notes ---
DATE: SUBJECTIVE: Chart reviewed and the patient interviewed. Also, discussed the patient's condition with the staff and reviewed the records and labs. The patient is still preoccupied and he is still obsessed with his Persaud catheter and also with changing his diapers. The patient also is still in a depressed mood. The patient also is anxious and still needs lots of reassurance. Otherwise, the patient is compliant with taking his medications with no side effects of medications. ASSESSMENT: The patient is still depressed and preoccupied with his medical problems. TREATMENT PLAN: The patient started on Lexapro yesterday. We will continue same dose. Also, continue to work on his ineffective coping and will continue to follow up closely. [facility]# [id number]
[2017-12-13] MEDS: Multivitamin Tab PO SCH (09:02)
--- NOTE | 2017-12-13 14:30 | Internal Medicine Prog Note ---
Internal Medicine Subjective - Subjective Service Date: 12/13/17 Patient seen and examined:: with staff Patient is:: awake, in bed, talking Per staff patient has:: no adverse event (HE DENIES ANY PAIN OR SOB.) Internal Medicine Objective - Results Result Diagrams: 12/05/17 07:25 12/05/17 07:25 Recent Labs: Laboratory Last Values WBC 6.2 Th/cmm (4.8-10.8) 12/05/17 07:25 RBC 4.67 Mil/cmm (3.80-5.80) 12/05/17 07:25 Hgb 13.6 gm/dL (12-16) 12/05/17 07:25 Hct 40.3 % (41.0-60) L 12/05/17 07:25 MCV 86.4 fl (80-99) 12/05/17 07:25 MCH 29.1 pg (27.0-31.0) 12/05/17 07:25 MCHC Differential 33.7 pg (28.0-36.0) 12/05/17 07:25 RDW 13.3 % (11.5-20.0) 12/05/17 07:25 Plt Count 290 Th/cmm (150-400) 12/05/17 07:25 MPV 6.6 fl 12/05/17 07:25 Neutrophils % 54.9 % (40.0-80.0) 12/05/17 07:25 Lymphocytes % 33.3 % (20.0-50.0) 12/05/17 07:25 Monocytes % 7.5 % (2.0-10.0) 12/05/17 07:25 Eosinophils % 2.7 % (0.0-5.0) 12/05/17 07:25 Basophils % 1.6 % (0.0-2.0) 12/05/17 07:25 Sodium 141 mEq/L (136-145) 12/05/17 07:25 Potassium 4.1 mEq/L (3.5-5.1) 12/05/17 07:25 Chloride 108 mEq/L (98-107) H 12/05/17 07:25 Carbon Dioxide 23.7 mEq/L (21.0-31.0) 12/05/17 07:25 Anion Gap 13.4 (7.0-16.0) 12/05/17 07:25 BUN 30 mg/dL (7-25) H 12/05/17 07:25 Creatinine 1.5 mg/dL (0.7-1.3) H 12/05/17 07:25 Est GFR ( Amer) 59.7 ml/min (>90) 12/05/17 07:25 Est GFR (Non-Af Amer) 49.3 ml/min 12/05/17 07:25 BUN/Creatinine Ratio 20.0 12/05/17 07:25 Glucose 116 mg/dL (70-105) H 12/05/17 07:25 Calcium 9.6 mg/dL (8.6-10.3) 12/05/17 07:25 Total Bilirubin 0.5 mg/dL (0.3-1.0) 12/05/17 07:25 AST 22 U/L (13-39) 12/05/17 07:25 ALT 14 U/L (7-52) 12/05/17 07:25 Alkaline Phosphatase 71 U/L (34-104) 12/05/17 07:25 Total Protein 7.2 gm/dL (6.0-8.3) 12/05/17 07:25 Albumin 4.2 gm/dL (4.2-5.5) 12/05/17 07:25 Globulin 3.0 gm/dL 12/05/17 07:25 Albumin/Globulin Ratio 1.4 (1.0-1.8) 12/05/17 07:25 TSH 5.17 uIU/ml (0.34-5.60) 12/05/17 07:25 - Physical Exam Vitals and I&O: Vital Signs Temp 98.2 F 12/13/17 06:38 Pulse 82 12/13/17 09:01 Resp 20 12/13/17 08:00 BP 100/56 12/13/17 09:01 Pulse Ox 98 12/13/17 06:38 Intake & Output 12/12/17 12/13/17 12/13/17 18:59 06:59 18:59 Intake Total 1200 120 Output Total 600 500 Balance 600 -380 Intake: Oral 1200 120 Output: Urine 600 500 Active Medications: Current Medications Acetaminophen (Tylenol) 650 mg PO Q4HR PRN PRN Reason: Mild Pain / Temp above 100 Stop: 02/01/18 19:53 Last Admin: 12/13/17 05:03 Dose: 650 mg Al Hydrox/Mg Hydrox/Simethicone (Maalox) 30 ml PO Q4HR PRN PRN Reason: GI DISTRESS Stop: 02/01/18 19:53 Last Admin: 12/11/17 19:50 Dose: 30 ml Atorvastatin Calcium (Lipitor) 20 mg PO HS [facility]; Protocol Stop: 02/02/18 20:59 Last Admin: 12/12/17 21:12 Dose: 20 mg Bethanechol Chloride (Urecholine) 50 mg PO QDAC JOSE DANIEL Stop: 02/05/18 08:59 Last Admin: 12/13/17 06:53 Dose: 50 mg Escitalopram Oxalate (Lexapro) 10 mg PO HS [facility]; Protocol Stop: 02/09/18 20:59 Last Admin: 12/12/17 21:12 Dose: 10 mg Gabapentin (Neurontin) 100 mg PO DAILY JOSE DANIEL Stop: 02/02/18 08:59 Last Admin: 12/13/17 09:02 Dose: 100 mg Lamotrigine (Lamictal) 75 mg PO BID [facility]; Protocol Stop: 02/03/18 08:59 Last Admin: 12/13/17 09:02 Dose: 75 mg Lisinopril (Zestril) 10 mg PO DAILY [facility] Stop: 02/02/18 08:59 Last Admin: 12/13/17 09:01 Dose: 10 mg Lorazepam (Ativan) 0.5 mg PO Q4HR PRN; Protocol PRN Reason: Anxiety/agitation Stop: 01/02/18 19:53 Last Admin: 12/13/17 09:01 Dose: 0.5 mg Metformin HCl (Glucophage) 500 mg PO BIDWM JOSE DANIEL Stop: 02/02/18 07:59 Last Admin: 12/13/17 09:03 Dose: 500 mg Multivitamins/Vitamin C (Theragran) 1 tab PO DAILY [facility] Stop: 02/02/18 08:59 Last Admin: 12/13/17 09:02 Dose: 1 tab Olanzapine (Zyprexa) 10 mg PO Q12HR JOSE DANIEL; Protocol Stop: 02/02/18 08:59 Last Admin: 12/13/17 09:01 Dose: 10 mg Tamsulosin HCl (Flomax) 0.4 mg PO HS [facility] Stop: 02/02/18 20:59 Last Admin: 12/12/17 21:12 Dose: 0.4 mg Trazodone HCl (Desyrel) 100 mg PO HS JOSE DANIEL; Protocol Stop: 02/05/18 20:59 Last Admin: 12/12/17 21:12 Dose: 100 mg Venlafaxine HCl (Effexor Xr) 150 mg PO DAILY JOSE DANIEL; Protocol Stop: 02/07/18 08:59 Last Admin: 12/13/17 09:02 Dose: 150 mg Zolpidem Tartrate (Ambien) 5 mg PO HS PRN PRN Reason: Insomnia Stop: 02/01/18 19:53 Last Admin: 12/12/17 21:13 Dose: 5 mg General: demented HEENT: NC/AT, PERRLA, EOMI, anicteric sclerae, throat clear Neck: No JVD, No thyromegaly, +2 carotid pulse wo bruit, No LAD Cardiovascular: RRR, Normal S1, Normal S2, without murmur Abdomen: soft, non-tender, tender, thin, globular, non-distended Extremities: clear Neurological: no change Internal Medicine Assmt/Plan - Assessment Assessment: 1.HYPERLIPIDEMIA. 2.BPH. 3.HTN. 4.DEMENTIA. - Plan Plan: CONTINUE ON CURRENT MEDICATION AND DIET. Nutritional Asmnt/Malnutr-PDOC - Dietary Evaluation Malnutrition Findings (Please click <Entered> for more info): Nutritional Asmnt/Malnutrition Start: 12/06/17 10: 47 Text: Status: Complete Freq: Protocol: Document 12/06/17 14:24 [email or web address] (Rec: 12/06/17 14:37 [email or web address]) Nutritional Asmnt/Malnutrition Patient General Information Nutritional Screening Moderate Risk Diagnosis depresion Pertinent Medical Hx/Surgical Hx HTN, hyperlipidemia, BPH, dementia, psychosis Subjective Information Pt seen lying in bed at time of visit, finished lunch. Pt stated good appetite, he had big breakfast this morning, not hungry at this time. Advice pt to request snacks in the afternoon as needed. Pt verberlly understood. Current Diet Order/ Nutrition Support STEPHAN Pertinent Medications glucophage, theragran Pertinent Labs 12/05 Cl 108, BUN 30, Cr 1.5, GFR 59.7, Glucose 116 Nutritional Hx/Data Height 1.7 m Height (Calculated Centimeters) 170.2 Current Weight (lbs) 70.307 kg Weight (Calculated Kilograms) 70.3 Weight (Calculated Grams) 88298.8 [place] Body Weight 148 Body Mass Index (BMI) 24.3 Weight Status Approriate GI Symptoms GI Symptoms None Last BM 12/06 Difficult in: None Skin Integrity/Comment: intact Current %PO Good (75-100%) Estimated Nutritional Goals BEE in Kcals: Using Current wt Calories/Kcals/Kg 25-30 Kcals Calculated 9952-4115 Protein: Using Current wt Protein g/k.7 Protein Calculated 50 Fluid: ml 1750-2100ml (1ml/kcal) Nutritional Problem 1. Problem Problem altered nutrition related labs Etiology impaired renal function Signs/Symptoms: BUN 30, Cr 1.5, GFR 59.7 Malnutrition Alert Is there a minimum of two criteria No selected? Query Text:Check all the applicable criteria. A minimum of two criteria are recommended for diagnosis of either severe or non-severe malnutrition. Malnutrition Related to Morbid Obesity Malnutrition related to morbid obesity No Intervention/Recommendation Comments 1. Continue with STEPHAN diet as ordered. Monitor renal labs. 2. Monitor PO intake, wt, labs and skin integrity 3. F/U as low risk in 7 days, 12/13 Expected Outcomes/Goals Expected Outcomes/Goals 1. PO intake to meet at least 75% of nutritional needs. 2. Wt stability, skin to remain intact, labs to approach WNL.
[2017-12-13] MEDS: Atorvastatin Calcium 10 MG TAB PO SCH (21:15)
--- NOTE | 2017-12-13 22:02 | Progress Notes ---
DATE: SUBJECTIVE: Chart reviewed and the patient interviewed. Also discussed the patient's condition with the staff and reviewed records and labs. The patient continued to be depressed and withdrawn. The patient also is suspicious and guarded. He is also easily agitated. The patient also still having severe mood swings. Otherwise, the patient is compliant with taking his medications with no side effect of medications. ASSESSMENT: The patient is still agitated and irritable. TREATMENT PLAN: Continue monitoring his behavior and his condition closely. Also, continue Lexapro and Depakote, but will increase Seroquel to 37.5 mg twice a day and we will continue to follow up closely. JOB# [id number]
[2017-12-14] MEDS: Multivitamin Tab PO SCH (08:41)
[2017-12-14 15:21] LABS: URINE MICROSCOPIC INDICATED? YES; URINE SOURCE RANDOM
[2017-12-14 15:24] LABS: URINE BILIRUBIN NEGATIVE (NEGATIVE); URINE BLOOD LARGE (NEGATIVE); URINE GLUCOSE (UA) NEGATIVE (NEGATIVE); URINE KETONE TRACE mg/dL (NEGATIVE); URINE LEUKOCYTE ESTERASE MODERATE (NEGATIVE); URINE NITRATE POSITIVE (NEGATIVE); URINE PH 5.5 (4.6 - 8.0); URINE PROTEIN 100 mg/dL (NEGATIVE)
[2017-12-14 15:42] LABS: URINE CLARITY CLOUDY (CLEAR); URINE COLOR YELLOW
[2017-12-14 15:43] LABS: URINE RBC 50-100 /hpf (0-5)
[2017-12-14 15:44] LABS: URINE AMORPHOUS SEDIMENT FEW URATES (NONE SEEN); URINE BACTERIA MANY /hpf (NONE SEEN); URINE EPITHELIAL CELLS OCCASIONAL /lpf (FEW); URINE WBC 25-50 /hpf (0-5)
--- NOTE | 2017-12-14 19:52 | Progress Notes ---
DATE: SUBJECTIVE: Chart reviewed and the patient interviewed. Also discussed the patient's condition with the staff and reviewed records and labs. The patient is still paranoid. The patient also is still forgetful and wandering around the unit and needs a lot of redirections, but he is able to follow directions. The patient also is still depressed and wants to be left alone. He is compliant with taking Lexapro with no side effect. ASSESSMENT: The patient is still depressed and is still paranoid. TREATMENT PLAN: Continue monitoring his behavior closely. Also, continue Zyprexa, Lexapro, Effexor and Depakote, and we will continue to follow up closely. JOB# [id number]
[2017-12-14] MEDS: Atorvastatin Calcium 10 MG TAB PO SCH (21:15)
--- NOTE | 2017-12-14 23:11 | General Progress Note ---
Subjective - Review of Systems Service Date: 12/14/17 Subjective: resting comfortably no distress Objective - Results Result Diagrams: 12/05/17 07:25 12/05/17 07:25 Recent Labs: Laboratory Last Values WBC 6.2 Th/cmm (4.8-10.8) 12/05/17 07:25 RBC 4.67 Mil/cmm (3.80-5.80) 12/05/17 07:25 Hgb 13.6 gm/dL (12-16) 12/05/17 07:25 Hct 40.3 % (41.0-60) L 12/05/17 07:25 MCV 86.4 fl (80-99) 12/05/17 07:25 MCH 29.1 pg (27.0-31.0) 12/05/17 07:25 MCHC Differential 33.7 pg (28.0-36.0) 12/05/17 07:25 RDW 13.3 % (11.5-20.0) 12/05/17 07:25 Plt Count 290 Th/cmm (150-400) 12/05/17 07:25 MPV 6.6 fl 12/05/17 07:25 Neutrophils % 54.9 % (40.0-80.0) 12/05/17 07:25 Lymphocytes % 33.3 % (20.0-50.0) 12/05/17 07:25 Monocytes % 7.5 % (2.0-10.0) 12/05/17 07:25 Eosinophils % 2.7 % (0.0-5.0) 12/05/17 07:25 Basophils % 1.6 % (0.0-2.0) 12/05/17 07:25 Sodium 141 mEq/L (136-145) 12/05/17 07:25 Potassium 4.1 mEq/L (3.5-5.1) 12/05/17 07:25 Chloride 108 mEq/L (98-107) H 12/05/17 07:25 Carbon Dioxide 23.7 mEq/L (21.0-31.0) 12/05/17 07:25 Anion Gap 13.4 (7.0-16.0) 12/05/17 07:25 BUN 30 mg/dL (7-25) H 12/05/17 07:25 Creatinine 1.5 mg/dL (0.7-1.3) H 12/05/17 07:25 Est GFR ( Amer) 59.7 ml/min (>90) 12/05/17 07:25 Est GFR (Non-Af Amer) 49.3 ml/min 12/05/17 07:25 BUN/Creatinine Ratio 20.0 12/05/17 07:25 Glucose 116 mg/dL (70-105) H 12/05/17 07:25 Calcium 9.6 mg/dL (8.6-10.3) 12/05/17 07:25 Total Bilirubin 0.5 mg/dL (0.3-1.0) 12/05/17 07:25 AST 22 U/L (13-39) 12/05/17 07:25 ALT 14 U/L (7-52) 12/05/17 07:25 Alkaline Phosphatase 71 U/L (34-104) 12/05/17 07:25 Total Protein 7.2 gm/dL (6.0-8.3) 12/05/17 07:25 Albumin 4.2 gm/dL (4.2-5.5) 12/05/17 07:25 Globulin 3.0 gm/dL 12/05/17 07:25 Albumin/Globulin Ratio 1.4 (1.0-1.8) 12/05/17 07:25 TSH 5.17 uIU/ml (0.34-5.60) 12/05/17 07:25 Urine Source RANDOM 12/14/17 15:00 Urine Color YELLOW 12/14/17 15:00 Urine Clarity CLOUDY (CLEAR) 12/14/17 15:00 Urine pH 5.5 (4.6 - 8.0) 12/14/17 15:00 Ur Specific [place] 1.025 (1.005-1.030) 12/14/17 15:00 Urine Protein 100 mg/dL (NEGATIVE) H 12/14/17 15:00 Urine Glucose (UA) NEGATIVE mg/dL (NEGATIVE) 12/14/17 15:00 Urine Ketones TRACE mg/dL (NEGATIVE) 12/14/17 15:00 Urine Blood LARGE (NEGATIVE) H 12/14/17 15:00 Urine Nitrate POSITIVE (NEGATIVE) H 12/14/17 15:00 Urine Bilirubin NEGATIVE (NEGATIVE) 12/14/17 15:00 Urine Urobilinogen 1.0 E.U./dL (0.2 - 1.0) 12/14/17 15:00 Ur Leukocyte Esterase MODERATE (NEGATIVE) H 12/14/17 15:00 Urine RBC 50-100 /hpf (0-5) H 12/14/17 15:00 Urine WBC 25-50 /hpf (0-5) H 12/14/17 15:00 Ur Epithelial Cells OCCASIONAL /lpf (FEW) 12/14/17 15:00 Amorphous Sediment FEW URATES (NONE SEEN) 12/14/17 15:00 Urine Bacteria MANY /hpf (NONE SEEN) H 12/14/17 15:00 - Physical Exam Vitals and I&O: Vital Signs Temp 97.9 F 12/14/17 20:46 Pulse 89 12/14/17 20:46 Resp 21 12/14/17 20:46 BP 121/69 12/14/17 20:46 Pulse Ox 98 12/14/17 20:46 Intake & Output 12/14/17 12/14/17 12/15/17 06:59 18:59 06:59 Intake Total 1200 240 Output Total 400 Balance 1200 -160 Intake: Oral 1200 240 Output: Urine 400 Other: # Bowel Movements 1 Active Medications: Current Medications Acetaminophen (Tylenol) 650 mg PO Q4HR PRN PRN Reason: Mild Pain / Temp above 100 Stop: 02/01/18 19:53 Last Admin: 12/13/17 05:03 Dose: 650 mg Al Hydrox/Mg Hydrox/Simethicone (Maalox) 30 ml PO Q4HR PRN PRN Reason: GI DISTRESS Stop: 02/01/18 19:53 Last Admin: 12/11/17 19:50 Dose: 30 ml Aspirin (Ecotrin) 81 mg PO DAILY JOSE DANIEL Stop: 02/13/18 08:59 Atorvastatin Calcium (Lipitor) 20 mg PO HS JOSE DANIEL; Protocol Stop: 02/02/18 20:59 Last Admin: 12/14/17 21:15 Dose: 20 mg Bethanechol Chloride (Urecholine) 50 mg PO QDAC JOSE DANIEL Stop: 02/05/18 08:59 Last Admin: 12/14/17 06:34 Dose: 50 mg Escitalopram Oxalate (Lexapro) 10 mg PO HS JOSE DANIEL; Protocol Stop: 02/09/18 20:59 Last Admin: 12/14/17 21:16 Dose: 10 mg Gabapentin (Neurontin) 100 mg PO DAILY JOSE DANIEL Stop: 02/02/18 08:59 Last Admin: 12/14/17 08:41 Dose: 100 mg Lamotrigine (Lamictal) 75 mg PO BID JOSE DANIEL; Protocol Stop: 02/03/18 08:59 Last Admin: 12/14/17 17:53 Dose: 75 mg Lisinopril (Zestril) 10 mg PO DAILY JOSE DANIEL Stop: 02/02/18 08:59 Last Admin: 12/14/17 08:41 Dose: 10 mg Lorazepam (Ativan) 0.5 mg PO Q4HR PRN; Protocol PRN Reason: Anxiety/agitation Stop: 01/02/18 19:53 Last Admin: 12/14/17 19:40 Dose: 0.5 mg Metformin HCl (Glucophage) 500 mg PO BIDWM JOSE DANIEL Stop: 02/02/18 07:59 Last Admin: 12/14/17 17:53 Dose: 500 mg Multivitamins/Vitamin C (Theragran) 1 tab PO DAILY JOSE DANIEL Stop: 02/02/18 08:59 Last Admin: 12/14/17 08:41 Dose: 1 tab Olanzapine (Zyprexa) 10 mg PO Q12HR JOSE DANIEL; Protocol Stop: 02/02/18 08:59 Last Admin: 12/14/17 21:16 Dose: 10 mg Tamsulosin HCl (Flomax) 0.4 mg PO HS JOSE DANIEL Stop: 02/02/18 20:59 Last Admin: 12/14/17 21:16 Dose: 0.4 mg Trazodone HCl (Desyrel) 100 mg PO HS JOSE DANIEL; Protocol Stop: 02/05/18 20:59 Last Admin: 12/14/17 21:17 Dose: 100 mg Venlafaxine HCl (Effexor Xr) 150 mg PO DAILY JOSE DANIEL; Protocol Stop: 02/07/18 08:59 Last Admin: 12/14/17 08:42 Dose: 150 mg Zolpidem Tartrate (Ambien) 5 mg PO HS PRN PRN Reason: Insomnia Stop: 02/01/18 19:53 Last Admin: 12/14/17 21:17 Dose: 5 mg General: Cooperative, No acute distress HEENT: Atraumatic Neck: Supple, JVD Cardiovascular: Regular rate, Normal S1, Normal S2 Lungs: Clear to auscultation, Normal air movement Abdomen: Bowel sounds, Soft Assessment/Plan - Assessment Assessment: 1.HYPERLIPIDEMIA. 2.BPH. 3.HTN. 4.DEMENTIA. - Plan Plan: requesting leg bag and resuming aspirin discussed with staff Nutritional Asmnt/Malnutr-PDOC - Dietary Evaluation Malnutrition Findings (Please click <Entered> for more info): Nutritional Asmnt/Malnutrition Start: 12/06/17 10: 47 Text: Status: Complete Freq: Protocol: [facility] 12[facility]06[facility]17 14[facility]24 [facility] (Rec: 12/06/17 14:37 HEN [email or web address]) Nutritional Asmnt/Malnutrition Patient General Information Nutritional Screening Moderate Risk Diagnosis depresion Pertinent Medical Hx/Surgical Hx HTN, hyperlipidemia, BPH, dementia, psychosis Subjective Information Pt seen lying in bed at time of visit, finished lunch. Pt stated good appetite, he had big breakfast this morning, not hungry at this time. Advice pt to request snacks in the afternoon as needed. Pt verberlly understood. Current Diet Order/ Nutrition Support STEPHAN Pertinent Medications glucophage, theragran Pertinent Labs 12/05 Cl 108, BUN 30, Cr 1.5, GFR 59.7, Glucose 116 Nutritional Hx/Data Height 1.7 m Height (Calculated Centimeters) 170.2 Current Weight (lbs) 70.307 kg Weight (Calculated Kilograms) 70.3 Weight (Calculated Grams) 26606.8 [place] Body Weight 148 Body Mass Index (BMI) 24.3 Weight Status Approriate GI Symptoms GI Symptoms None Last BM 12/06 Difficult in: None Skin Integrity/Comment: intact Current %PO Good (75-100%) Estimated Nutritional Goals BEE in Kcals: Using Current wt Calories/Kcals/Kg 25-30 Kcals Calculated 1411-2765 Protein: Using Current wt Protein g/k.7 Protein Calculated 50 Fluid: ml 1750-2100ml (1ml/kcal) Nutritional Problem 1. Problem Problem altered nutrition related labs Etiology impaired renal function Signs/Symptoms: BUN 30, Cr 1.5, GFR 59.7 Malnutrition Alert Is there a minimum of two criteria No selected? Query Text:Check all the applicable criteria. A minimum of two criteria are recommended for diagnosis of either severe or non-severe malnutrition. Malnutrition Related to Morbid Obesity Malnutrition related to morbid obesity No Intervention/Recommendation Comments 1. Continue with STEPHAN diet as ordered. Monitor renal labs. 2. Monitor PO intake, wt, labs and skin integrity 3. F/U as low risk in 7 days, 12/13 Expected Outcomes/Goals Expected Outcomes/Goals 1. PO intake to meet at least 75% of nutritional needs. 2. Wt stability, skin to remain intact, labs to approach WNL.
[2017-12-15] MEDS: Multivitamin Tab PO SCH (08:52)
--- NOTE | 2017-12-15 15:21 | General Progress Note ---
Subjective - Review of Systems Service Date: 12/15/17 Subjective: resting comfortably no distress Objective - Results Result Diagrams: 12/05/17 07:25 12/05/17 07:25 Recent Labs: Laboratory Last Values WBC 6.2 Th/cmm (4.8-10.8) 12/05/17 07:25 RBC 4.67 Mil/cmm (3.80-5.80) 12/05/17 07:25 Hgb 13.6 gm/dL (12-16) 12/05/17 07:25 Hct 40.3 % (41.0-60) L 12/05/17 07:25 MCV 86.4 fl (80-99) 12/05/17 07:25 MCH 29.1 pg (27.0-31.0) 12/05/17 07:25 MCHC Differential 33.7 pg (28.0-36.0) 12/05/17 07:25 RDW 13.3 % (11.5-20.0) 12/05/17 07:25 Plt Count 290 Th/cmm (150-400) 12/05/17 07:25 MPV 6.6 fl 12/05/17 07:25 Neutrophils % 54.9 % (40.0-80.0) 12/05/17 07:25 Lymphocytes % 33.3 % (20.0-50.0) 12/05/17 07:25 Monocytes % 7.5 % (2.0-10.0) 12/05/17 07:25 Eosinophils % 2.7 % (0.0-5.0) 12/05/17 07:25 Basophils % 1.6 % (0.0-2.0) 12/05/17 07:25 Sodium 141 mEq/L (136-145) 12/05/17 07:25 Potassium 4.1 mEq/L (3.5-5.1) 12/05/17 07:25 Chloride 108 mEq/L (98-107) H 12/05/17 07:25 Carbon Dioxide 23.7 mEq/L (21.0-31.0) 12/05/17 07:25 Anion Gap 13.4 (7.0-16.0) 12/05/17 07:25 BUN 30 mg/dL (7-25) H 12/05/17 07:25 Creatinine 1.5 mg/dL (0.7-1.3) H 12/05/17 07:25 Est GFR ( Amer) 59.7 ml/min (>90) 12/05/17 07:25 Est GFR (Non-Af Amer) 49.3 ml/min 12/05/17 07:25 BUN/Creatinine Ratio 20.0 12/05/17 07:25 Glucose 116 mg/dL (70-105) H 12/05/17 07:25 Calcium 9.6 mg/dL (8.6-10.3) 12/05/17 07:25 Total Bilirubin 0.5 mg/dL (0.3-1.0) 12/05/17 07:25 AST 22 U/L (13-39) 12/05/17 07:25 ALT 14 U/L (7-52) 12/05/17 07:25 Alkaline Phosphatase 71 U/L (34-104) 12/05/17 07:25 Total Protein 7.2 gm/dL (6.0-8.3) 12/05/17 07:25 Albumin 4.2 gm/dL (4.2-5.5) 12/05/17 07:25 Globulin 3.0 gm/dL 12/05/17 07:25 Albumin/Globulin Ratio 1.4 (1.0-1.8) 12/05/17 07:25 TSH 5.17 uIU/ml (0.34-5.60) 12/05/17 07:25 Urine Source RANDOM 12/14/17 15:00 Urine Color YELLOW 12/14/17 15:00 Urine Clarity CLOUDY (CLEAR) 12/14/17 15:00 Urine pH 5.5 (4.6 - 8.0) 12/14/17 15:00 Ur Specific [place] 1.025 (1.005-1.030) 12/14/17 15:00 Urine Protein 100 mg/dL (NEGATIVE) H 12/14/17 15:00 Urine Glucose (UA) NEGATIVE mg/dL (NEGATIVE) 12/14/17 15:00 Urine Ketones TRACE mg/dL (NEGATIVE) 12/14/17 15:00 Urine Blood LARGE (NEGATIVE) H 12/14/17 15:00 Urine Nitrate POSITIVE (NEGATIVE) H 12/14/17 15:00 Urine Bilirubin NEGATIVE (NEGATIVE) 12/14/17 15:00 Urine Urobilinogen 1.0 E.U./dL (0.2 - 1.0) 12/14/17 15:00 Ur Leukocyte Esterase MODERATE (NEGATIVE) H 12/14/17 15:00 Urine RBC 50-100 /hpf (0-5) H 12/14/17 15:00 Urine WBC 25-50 /hpf (0-5) H 12/14/17 15:00 Ur Epithelial Cells OCCASIONAL /lpf (FEW) 12/14/17 15:00 Amorphous Sediment FEW URATES (NONE SEEN) 12/14/17 15:00 Urine Bacteria MANY /hpf (NONE SEEN) H 12/14/17 15:00 - Physical Exam Vitals and I&O: Vital Signs Temp 97.9 F 12/15/17 06:29 Pulse 95 12/15/17 09:08 Resp 20 12/15/17 06:29 BP 119/63 12/15/17 09:08 Pulse Ox 96 12/15/17 06:29 Intake & Output 12/14/17 12/15/17 12/15/17 18:59 06:59 18:59 Intake Total 1200 480 Output Total 750 Balance 1200 -270 Intake: Oral 1200 480 Output: Urine 750 Other: # Bowel Movements 1 Active Medications: Current Medications Acetaminophen (Tylenol) 650 mg PO Q4HR PRN PRN Reason: Mild Pain / Temp above 100 Stop: 02/01/18 19:53 Last Admin: 12/13/17 05:03 Dose: 650 mg Al Hydrox/Mg Hydrox/Simethicone (Maalox) 30 ml PO Q4HR PRN PRN Reason: GI DISTRESS Stop: 02/01/18 19:53 Last Admin: 12/11/17 19:50 Dose: 30 ml Aspirin (Ecotrin) 81 mg PO DAILY JO[facility] DANIEL Stop: 02/13/18 08:59 Last Admin: 12/15/17 08:52 Dose: 81 mg Atorvastatin Calcium (Lipitor) 20 mg PO HS JOSE DANIEL; Protocol Stop: 02/02/18 20:59 Last Admin: 12/14/17 21:15 Dose: 20 mg Bethanechol Chloride (Urecholine) 50 mg PO QDAC [facility]EL Stop: 02/05/18 08:59 Last Admin: 12/15/17 06:36 Dose: 50 mg Escitalopram Oxalate (Lexapro) 10 mg PO HS JOSE DANIEL; Protocol Stop: 02/09/18 20:59 Last Admin: 12/14/17 21:16 Dose: 10 mg Gabapentin (Neurontin) 100 mg PO DAILY [facility] Stop: 02/02/18 08:59 Last Admin: 12/15/17 08:52 Dose: 100 mg Lamotrigine (Lamictal) 75 mg PO BID [facility]; Protocol Stop: 02/03/18 08:59 Last Admin: 12/15/17 08:52 Dose: 75 mg Lisinopril (Zestril) 10 mg PO DAILY [facility] Stop: 02/02/18 08:59 Last Admin: 12/15/17 09:08 Dose: 10 mg Lorazepam (Ativan) 0.5 mg PO Q4HR PRN; Protocol PRN Reason: Anxiety/agitation Stop: 01/02/18 19:53 Last Admin: 12/15/17 12:00 Dose: 0.5 mg Metformin HCl (Glucophage) 500 mg PO BIDWM [facility] Stop: 02/02/18 07:59 Last Admin: 12/15/17 08:52 Dose: 500 mg Multivitamins/Vitamin C (Theragran) 1 tab PO DAILY [facility] Stop: 02/02/18 08:59 Last Admin: 12/15/17 08:52 Dose: 1 tab Olanzapine (Zyprexa) 10 mg PO Q12HR [facility]; Protocol Stop: 02/02/18 08:59 Last Admin: 12/15/17 08:52 Dose: 10 mg Tamsulosin HCl (Flomax) 0.4 mg PO HS [facility] Stop: 02/02/18 20:59 Last Admin: 12/14/17 21:16 Dose: 0.4 mg Trazodone HCl (Desyrel) 100 mg PO HS [facility]; Protocol Stop: 02/05/18 20:59 Last Admin: 12/14/17 21:17 Dose: 100 mg Trimethoprim/Sulfamethoxazole (Bactrim Ds) 1 tab PO BID [facility] Stop: 12/22/17 16:59 Venlafaxine HCl (Effexor Xr) 150 mg PO DAILY [facility]; Protocol Stop: 02/07/18 08:59 Last Admin: 12/15/17 08:51 Dose: 150 mg Zolpidem Tartrate (Ambien) 5 mg PO HS PRN PRN Reason: Insomnia Stop: 02/01/18 19:53 Last Admin: 12/14/17 21:17 Dose: 5 mg General: Cooperative, No acute distress HEENT: Atraumatic Neck: Supple, JVD Cardiovascular: Regular rate, Normal S1, Normal S2 Lungs: Clear to auscultation, Normal air movement Abdomen: Bowel sounds, Soft Assessment/Plan - Assessment Assessment: 1.HYPERLIPIDEMIA. 2.BPH. 3.HTN. 4.DEMENTIA. 5.UTI - Plan Plan: requesting leg bag and resuming aspirin Bactrim for UTI Nutritional Asmnt/Malnutr-PDOC - Dietary Evaluation Malnutrition Findings (Please click <Entered> for more info): Nutritional Asmnt/Malnutrition Start: 12/06/17 10: 47 Text: Status: Complete Freq: Protocol: Document 12/06/17 14:24 PAULA (Rec: 12/06/17 14:37 ROBERT [email or web address]) Nutritional Asmnt/Malnutrition Patient General Information Nutritional Screening Moderate Risk Diagnosis depresion Pertinent Medical Hx/Surgical Hx HTN, hyperlipidemia, BPH, dementia, psychosis Subjective Information Pt seen lying in bed at time of visit, finished lunch. Pt stated good appetite, he had big breakfast this morning, not hungry at this time. Advice pt to request snacks in the afternoon as needed. Pt verberlly understood. Current Diet Order/ Nutrition Support STEPHAN Pertinent Medications glucophage, theragran Pertinent Labs 12/05 Cl 108, BUN 30, Cr 1.5, GFR 59.7, Glucose 116 Nutritional Hx/Data Height 1.7 m Height (Calculated Centimeters) 170.2 Current Weight (lbs) 70.307 kg Weight (Calculated Kilograms) 70.3 Weight (Calculated Grams) 01075.8 [place] Body Weight 148 Body Mass Index (BMI) 24.3 Weight Status Approriate GI Symptoms GI Symptoms None Last BM 12/06 Difficult in: None Skin Integrity/Comment: intact Current %PO Good (75-100%) Estimated Nutritional Goals BEE in Kcals: Using Current wt Calories/Kcals/Kg 25-30 Kcals Calculated 5914-6536 Protein: Using Current wt Protein g/k.7 Protein Calculated 50 Fluid: ml 1750-2100ml (1ml/kcal) Nutritional Problem 1. Problem Problem altered nutrition related labs Etiology impaired renal function Signs/Symptoms: BUN 30, Cr 1.5, GFR 59.7 Malnutrition Alert Is there a minimum of two criteria No selected? Query Text:Check all the applicable criteria. A minimum of two criteria are recommended for diagnosis of either severe or non-severe malnutrition. Malnutrition Related to Morbid Obesity Malnutrition related to morbid obesity No Intervention/Recommendation Comments 1. Continue with STEPHAN diet as ordered. Monitor renal labs. 2. Monitor PO intake, wt, labs and skin integrity 3. F/U as low risk in 7 days, 12/13 Expected Outcomes/Goals Expected Outcomes/Goals 1. PO intake to meet at least 75% of nutritional needs. 2. Wt stability, skin to remain intact, labs to approach WNL.
[2017-12-15] MEDS: Sulfamethoxazole/TMP 800/160mg Tab PO SCH (17:01)
[2017-12-15] MEDS: Atorvastatin Calcium 10 MG TAB PO SCH (21:06)
[2017-12-16] MEDS: Multivitamin Tab PO SCH (08:43)
[2017-12-16] MEDS: Sulfamethoxazole/TMP 800/160mg Tab PO SCH ×2 (08:45→17:18)
--- NOTE | 2017-12-16 17:30 | Internal Medicine Prog Note ---
Internal Medicine Subjective - Subjective Service Date: 12/16/17 Patient seen and examined:: with staff Patient is:: awake, in bed, talking Per staff patient has:: no adverse event (HE DENIES ANY PAIN OR SOB.) Internal Medicine Objective - Results Result Diagrams: 12/05/17 07:25 12/05/17 07:25 Recent Labs: Laboratory Last Values WBC 6.2 Th/cmm (4.8-10.8) 12/05/17 07:25 RBC 4.67 Mil/cmm (3.80-5.80) 12/05/17 07:25 Hgb 13.6 gm/dL (12-16) 12/05/17 07:25 Hct 40.3 % (41.0-60) L 12/05/17 07:25 MCV 86.4 fl (80-99) 12/05/17 07:25 MCH 29.1 pg (27.0-31.0) 12/05/17 07:25 MCHC Differential 33.7 pg (28.0-36.0) 12/05/17 07:25 RDW 13.3 % (11.5-20.0) 12/05/17 07:25 Plt Count 290 Th/cmm (150-400) 12/05/17 07:25 MPV 6.6 fl 12/05/17 07:25 Neutrophils % 54.9 % (40.0-80.0) 12/05/17 07:25 Lymphocytes % 33.3 % (20.0-50.0) 12/05/17 07:25 Monocytes % 7.5 % (2.0-10.0) 12/05/17 07:25 Eosinophils % 2.7 % (0.0-5.0) 12/05/17 07:25 Basophils % 1.6 % (0.0-2.0) 12/05/17 07:25 Sodium 141 mEq/L (136-145) 12/05/17 07:25 Potassium 4.1 mEq/L (3.5-5.1) 12/05/17 07:25 Chloride 108 mEq/L (98-107) H 12/05/17 07:25 Carbon Dioxide 23.7 mEq/L (21.0-31.0) 12/05/17 07:25 Anion Gap 13.4 (7.0-16.0) 12/05/17 07:25 BUN 30 mg/dL (7-25) H 12/05/17 07:25 Creatinine 1.5 mg/dL (0.7-1.3) H 12/05/17 07:25 Est GFR ( Amer) 59.7 ml/min (>90) 12/05/17 07:25 Est GFR (Non-Af Amer) 49.3 ml/min 12/05/17 07:25 BUN/Creatinine Ratio 20.0 12/05/17 07:25 Glucose 116 mg/dL (70-105) H 12/05/17 07:25 Calcium 9.6 mg/dL (8.6-10.3) 12/05/17 07:25 Total Bilirubin 0.5 mg/dL (0.3-1.0) 12/05/17 07:25 AST 22 U/L (13-39) 12/05/17 07:25 ALT 14 U/L (7-52) 12/05/17 07:25 Alkaline Phosphatase 71 U/L (34-104) 12/05/17 07:25 Total Protein 7.2 gm/dL (6.0-8.3) 12/05/17 07:25 Albumin 4.2 gm/dL (4.2-5.5) 12/05/17 07:25 Globulin 3.0 gm/dL 12/05/17 07:25 Albumin/Globulin Ratio 1.4 (1.0-1.8) 12/05/17 07:25 TSH 5.17 uIU/ml (0.34-5.60) 12/05/17 07:25 Urine Source RANDOM 12/14/17 15:00 Urine Color YELLOW 12/14/17 15:00 Urine Clarity CLOUDY (CLEAR) 12/14/17 15:00 Urine pH 5.5 (4.6 - 8.0) 12/14/17 15:00 Ur Specific [place] 1.025 (1.005-1.030) 12/14/17 15:00 Urine Protein 100 mg/dL (NEGATIVE) H 12/14/17 15:00 Urine Glucose (UA) NEGATIVE mg/dL (NEGATIVE) 12/14/17 15:00 Urine Ketones TRACE mg/dL (NEGATIVE) 12/14/17 15:00 Urine Blood LARGE (NEGATIVE) H 12/14/17 15:00 Urine Nitrate POSITIVE (NEGATIVE) H 12/14/17 15:00 Urine Bilirubin NEGATIVE (NEGATIVE) 12/14/17 15:00 Urine Urobilinogen 1.0 E.U./dL (0.2 - 1.0) 12/14/17 15:00 Ur Leukocyte Esterase MODERATE (NEGATIVE) H 12/14/17 15:00 Urine RBC 50-100 /hpf (0-5) H 12/14/17 15:00 Urine WBC 25-50 /hpf (0-5) H 12/14/17 15:00 Ur Epithelial Cells OCCASIONAL /lpf (FEW) 12/14/17 15:00 Amorphous Sediment FEW URATES (NONE SEEN) 12/14/17 15:00 Urine Bacteria MANY /hpf (NONE SEEN) H 12/14/17 15:00 - Physical Exam Vitals and I&O: Vital Signs Temp 97.0 F 12/16/17 16:19 Pulse 80 12/16/17 16:19 Resp 20 12/16/17 16:19 BP 111/59 12/16/17 16:19 Pulse Ox 95 12/16/17 16:19 Intake & Output 12/15/17 12/16/17 12/16/17 18:59 06:59 18:59 Intake Total 1200 360 Output Total 600 800 Balance 600 -440 Intake: Oral 1200 360 Output: Urine 600 800 Other: # Bowel Movements 0 Active Medications: Current Medications Acetaminophen (Tylenol) 650 mg PO Q4HR PRN PRN Reason: Mild Pain / Temp above 100 Stop: 02/01/18 19:53 Last Admin: 12/15/17 22:41 Dose: 650 mg Al Hydrox/Mg Hydrox/Simethicone (Maalox) 30 ml PO Q4HR PRN PRN Reason: GI DISTRESS Stop: 02/01/18 19:53 Last Admin: 12/11/17 19:50 Dose: 30 ml Aspirin (Ecotrin) 81 mg PO DAILY [facility]EL Stop: 02/13/18 08:59 Last Admin: 12/16/17 08:44 Dose: 81 mg Atorvastatin Calcium (Lipitor) 20 mg PO HS [facility] DANIEL; Protocol Stop: 02/02/18 20:59 Last Admin: 12/15/17 21:06 Dose: 20 mg Bethanechol Chloride (Urecholine) 50 mg PO QDAC [facility] DANIEL Stop: 02/05/18 08:59 Last Admin: 12/16/17 06:52 Dose: 50 mg Escitalopram Oxalate (Lexapro) 15 mg PO HS [facility]; Protocol Stop: 02/14/18 20:59 Gabapentin (Neurontin) 100 mg PO DAILY [facility] Stop: 02/02/18 08:59 Last Admin: 12/16/17 08:45 Dose: 100 mg Lamotrigine (Lamictal) 75 mg PO BID [facility]; Protocol Stop: 02/03/18 08:59 Last Admin: 12/16/17 17:18 Dose: 75 mg Lisinopril (Zestril) 10 mg PO DAILY [facility] Stop: 02/02/18 08:59 Last Admin: 12/16/17 08:45 Dose: Not Given Lorazepam (Ativan) 0.5 mg PO Q4HR PRN; Protocol PRN Reason: Anxiety/agitation Stop: 01/02/18 19:53 Last Admin: 12/16/17 17:18 Dose: 0.5 mg Metformin HCl (Glucophage) 500 mg PO BIDWM [facility] Stop: 02/02/18 07:59 Last Admin: 12/16/17 17:18 Dose: 500 mg Multivitamins/Vitamin C (Theragran) 1 tab PO DAILY [facility] Stop: 02/02/18 08:59 Last Admin: 12/16/17 08:43 Dose: 1 tab Olanzapine (Zyprexa) 10 mg PO Q12HR [facility]; Protocol Stop: 02/02/18 08:59 Last Admin: 12/16/17 08:44 Dose: 10 mg Tamsulosin HCl (Flomax) 0.4 mg PO HS [facility] Stop: 02/02/18 20:59 Last Admin: 12/15/17 21:07 Dose: 0.4 mg Trazodone HCl (Desyrel) 100 mg PO HS [facility]; Protocol Stop: 02/05/18 20:59 Last Admin: 12/15/17 21:06 Dose: 100 mg Trimethoprim/Sulfamethoxazole (Bactrim Ds) 1 tab PO BID [facility] Stop: 12/22/17 16:59 Last Admin: 12/16/17 17:18 Dose: 1 tab Venlafaxine HCl (Effexor Xr) 150 mg PO DAILY [facility]; Protocol Stop: 02/07/18 08:59 Last Admin: 12/16/17 08:43 Dose: 150 mg Zolpidem Tartrate (Ambien) 5 mg PO HS PRN PRN Reason: Insomnia Stop: 02/01/18 19:53 Last Admin: 12/15/17 21:07 Dose: 5 mg General: demented HEENT: NC/AT, PERRLA, EOMI, anicteric sclerae, throat clear Neck: No JVD, No thyromegaly, +2 carotid pulse wo bruit, No LAD Cardiovascular: RRR, Normal S1, Normal S2, without murmur Abdomen: soft, non-tender, tender, thin, globular, non-distended Extremities: clear Neurological: no change Internal Medicine Assmt/Plan - Assessment Assessment: 1.HYPERLIPIDEMIA. 2.BPH. 3.HTN. 4.DEMENTIA. - Plan Plan: CONTINUE ON CURRENT MEDICATION AND DIET. Nutritional Asmnt/Malnutr-PDOC - Dietary Evaluation Malnutrition Findings (Please click <Entered> for more info): Nutritional Asmnt/Malnutrition Start: 12/06/17 10: 47 Text: Status: Complete Freq: Protocol: Document 12/06/17 14:24 [facility] (Rec: 12/06/17 14:37 [facility] [id number]) Nutritional Asmnt/Malnutrition Patient General Information Nutritional Screening Moderate Risk Diagnosis depresion Pertinent Medical Hx/Surgical Hx HTN, hyperlipidemia, BPH, dementia, psychosis Subjective Information Pt seen lying in bed at time of visit, finished lunch. Pt stated good appetite, he had big breakfast this morning, not hungry at this time. Advice pt to request snacks in the afternoon as needed. Pt verberlly understood. Current Diet Order/ Nutrition Support STEPHAN Pertinent Medications glucophage, theragran Pertinent Labs 12/05 Cl 108, BUN 30, Cr 1.5, GFR 59.7, Glucose 116 Nutritional Hx/Data Height 1.7 m Height (Calculated Centimeters) 170.2 Current Weight (lbs) 70.307 kg Weight (Calculated Kilograms) 70.3 Weight (Calculated Grams) 30441.8 [place] Body Weight 148 Body Mass Index (BMI) 24.3 Weight Status Approriate GI Symptoms GI Symptoms None Last BM 12/06 Difficult in: None Skin Integrity/Comment: intact Current %PO Good (75-100%) Estimated Nutritional Goals BEE in Kcals: Using Current wt Calories/Kcals/Kg 25-30 Kcals Calculated 4439-7105 Protein: Using Current wt Protein g/k.7 Protein Calculated 50 Fluid: ml 1750-2100ml (1ml/kcal) Nutritional Problem 1. Problem Problem altered nutrition related labs Etiology impaired renal function Signs/Symptoms: BUN 30, Cr 1.5, GFR 59.7 Malnutrition Alert Is there a minimum of two criteria No selected? Query Text:Check all the applicable criteria. A minimum of two criteria are recommended for diagnosis of either severe or non-severe malnutrition. Malnutrition Related to Morbid Obesity Malnutrition related to morbid obesity No Intervention/Recommendation Comments 1. Continue with STEPHAN diet as ordered. Monitor renal labs. 2. Monitor PO intake, wt, labs and skin integrity 3. F/U as low risk in 7 days, 12/13 Expected Outcomes/Goals Expected Outcomes/Goals 1. PO intake to meet at least 75% of nutritional needs. 2. Wt stability, skin to remain intact, labs to approach WNL.
[2017-12-16] MEDS: Atorvastatin Calcium 10 MG TAB PO SCH (21:25)
--- NOTE | 2017-12-17 02:00 | Progress Notes ---
DATE: 12/15/2017 SUBJECTIVE: Chart reviewed and the patient interviewed. Also discussed the patient's condition with the staff and reviewed records and labs. The patient is still in a depressed mood and anxious. The patient also is demanding and he is still at times resisting care. He also is still seems to be severely depressed and "I miss my son." The patient also episodes of crying. Otherwise, the patient is compliant with taking his medications with no side effects of medications. ASSESSMENT: The patient is still depressed and psychotic. TREATMENT PLAN: Continue to monitor his behavior and his condition closely. Also, continue adjusting psychotropic medications and work on supportive therapy and his ineffective coping. JOB# [id number]
--- NOTE | 2017-12-17 02:57 | Progress Notes ---
DATE: 12/16/[address] Iglesias. SUBJECTIVE: Case was discussed with staff of the patient and reviewed records. He is a 67-year-old male who was admitted on 12/03/2017 on a hold for danger to self. He came on a hold from [facility]. He said that he has suicidal ideation. He went to the Emergency Room and said that he has plans to go into the traffic. He has been feeling very depressed lately, was tearful in the Emergency Room, has been having thoughts of ending his life. He thinks that the medication has not been effective. He has been in pain. He has been living in a board and care facility, drinking 2-3 beers daily, thinking that this will help him with his pain, becoming more depressed, difficulty with his coping, with thoughts of running into traffic or overdose. The patient admits that he has been hospitalized multiple times in the past, tried to overdose on pills about 10 years ago. The patient continues to be depressed, overwhelmed. At times he would get wandering about the unit, wants to be left alone. PLAN: He has been on Lexapro with no side effects, unable to make safe plan for self-care. He is on Lexapro 10 mg daily, Lamictal 75 mg twice a day and olanzapine 10 mg twice a day with no side effects, no sedation, no nausea. I will be increasing his Lexapro dose to 50 mg a day. No side effects with the medication, no sedation, no nausea and we will continue to work with the patient in group therapy, milieu therapy, and adjust medications as needed. JOB# [id number]
[2017-12-17] MEDS: Multivitamin Tab PO SCH (08:32)
[2017-12-17] MEDS: Sulfamethoxazole/TMP 800/160mg Tab PO SCH ×2 (08:32→17:38)
[2017-12-17] MEDS ORDERED: Probiotic Screen MC PRN (09:00)
[2017-12-17] MEDS: Lactobacillus Rhamnosus GG 15 Billion CFU CAP.SPRINK PO SCH (09:53)
[2017-12-17] MEDS: Atorvastatin Calcium 10 MG TAB PO SCH (21:03)
--- NOTE | 2017-12-17 21:21 | Internal Medicine Prog Note ---
Internal Medicine Subjective - Subjective Service Date: 12/17/17 Patient seen and examined:: with staff Patient is:: awake, in bed, talking Per staff patient has:: no adverse event (HE DENIES ANY PAIN OR SOB.) Internal Medicine Objective - Results Result Diagrams: 12/05/17 07:25 12/05/17 07:25 Recent Labs: Laboratory Last Values WBC 6.2 Th/cmm (4.8-10.8) 12/05/17 07:25 RBC 4.67 Mil/cmm (3.80-5.80) 12/05/17 07:25 Hgb 13.6 gm/dL (12-16) 12/05/17 07:25 Hct 40.3 % (41.0-60) L 12/05/17 07:25 MCV 86.4 fl (80-99) 12/05/17 07:25 MCH 29.1 pg (27.0-31.0) 12/05/17 07:25 MCHC Differential 33.7 pg (28.0-36.0) 12/05/17 07:25 RDW 13.3 % (11.5-20.0) 12/05/17 07:25 Plt Count 290 Th/cmm (150-400) 12/05/17 07:25 MPV 6.6 fl 12/05/17 07:25 Neutrophils % 54.9 % (40.0-80.0) 12/05/17 07:25 Lymphocytes % 33.3 % (20.0-50.0) 12/05/17 07:25 Monocytes % 7.5 % (2.0-10.0) 12/05/17 07:25 Eosinophils % 2.7 % (0.0-5.0) 12/05/17 07:25 Basophils % 1.6 % (0.0-2.0) 12/05/17 07:25 Sodium 141 mEq/L (136-145) 12/05/17 07:25 Potassium 4.1 mEq/L (3.5-5.1) 12/05/17 07:25 Chloride 108 mEq/L (98-107) H 12/05/17 07:25 Carbon Dioxide 23.7 mEq/L (21.0-31.0) 12/05/17 07:25 Anion Gap 13.4 (7.0-16.0) 12/05/17 07:25 BUN 30 mg/dL (7-25) H 12/05/17 07:25 Creatinine 1.5 mg/dL (0.7-1.3) H 12/05/17 07:25 Est GFR ( Amer) 59.7 ml/min (>90) 12/05/17 07:25 Est GFR (Non-Af Amer) 49.3 ml/min 12/05/17 07:25 BUN/Creatinine Ratio 20.0 12/05/17 07:25 Glucose 116 mg/dL (70-105) H 12/05/17 07:25 Calcium 9.6 mg/dL (8.6-10.3) 12/05/17 07:25 Total Bilirubin 0.5 mg/dL (0.3-1.0) 12/05/17 07:25 AST 22 U/L (13-39) 12/05/17 07:25 ALT 14 U/L (7-52) 12/05/17 07:25 Alkaline Phosphatase 71 U/L (34-104) 12/05/17 07:25 Total Protein 7.2 gm/dL (6.0-8.3) 12/05/17 07:25 Albumin 4.2 gm/dL (4.2-5.5) 12/05/17 07:25 Globulin 3.0 gm/dL 12/05/17 07:25 Albumin/Globulin Ratio 1.4 (1.0-1.8) 12/05/17 07:25 TSH 5.17 uIU/ml (0.34-5.60) 12/05/17 07:25 Urine Source RANDOM 12/14/17 15:00 Urine Color YELLOW 12/14/17 15:00 Urine Clarity CLOUDY (CLEAR) 12/14/17 15:00 Urine pH 5.5 (4.6 - 8.0) 12/14/17 15:00 Ur Specific [place] 1.025 (1.005-1.030) 12/14/17 15:00 Urine Protein 100 mg/dL (NEGATIVE) H 12/14/17 15:00 Urine Glucose (UA) NEGATIVE mg/dL (NEGATIVE) 12/14/17 15:00 Urine Ketones TRACE mg/dL (NEGATIVE) 12/14/17 15:00 Urine Blood LARGE (NEGATIVE) H 12/14/17 15:00 Urine Nitrate POSITIVE (NEGATIVE) H 12/14/17 15:00 Urine Bilirubin NEGATIVE (NEGATIVE) 12/14/17 15:00 Urine Urobilinogen 1.0 E.U./dL (0.2 - 1.0) 12/14/17 15:00 Ur Leukocyte Esterase MODERATE (NEGATIVE) H 12/14/17 15:00 Urine RBC 50-100 /hpf (0-5) H 12/14/17 15:00 Urine WBC 25-50 /hpf (0-5) H 12/14/17 15:00 Ur Epithelial Cells OCCASIONAL /lpf (FEW) 12/14/17 15:00 Amorphous Sediment FEW URATES (NONE SEEN) 12/14/17 15:00 Urine Bacteria MANY /hpf (NONE SEEN) H 12/14/17 15:00 - Physical Exam Vitals and I&O: Vital Signs Temp 97.1 F 12/17/17 15:12 Pulse 93 12/17/17 15:12 Resp 20 12/17/17 15:12 BP 99/61 12/17/17 15:12 Pulse Ox 95 12/17/17 15:12 Intake & Output 12/17/17 12/17/17 12/18/17 06:59 18:59 06:59 Intake Total 420 1500 Output Total 900 650 Balance -480 850 Intake: Oral 420 1500 Output: Urine 900 650 Other: # Bowel Movements 1 Active Medications: Current Medications Acetaminophen (Tylenol) 650 mg PO Q4HR PRN PRN Reason: Mild Pain / Temp above 100 Stop: 02/01/18 19:53 Last Admin: 12/15/17 22:41 Dose: 650 mg Al Hydrox/Mg Hydrox/Simethicone (Maalox) 30 ml PO Q4HR PRN PRN Reason: GI DISTRESS Stop: 02/01/18 19:53 Last Admin: 12/11/17 19:50 Dose: 30 ml Aspirin (Ecotrin) 81 mg PO DAILY JOSE DANIEL Stop: 02/13/18 08:59 Last Admin: 12/17/17 08:33 Dose: 81 mg Atorvastatin Calcium (Lipitor) 20 mg PO HS JOSE DANIEL; Protocol Stop: 02/02/18 20:59 Last Admin: 12/17/17 21:03 Dose: 20 mg Bethanechol Chloride (Urecholine) 50 mg PO QDAC JOSE DANIEL Stop: 02/05/18 08:59 Last Admin: 12/17/17 06:46 Dose: 50 mg Escitalopram Oxalate (Lexapro) 15 mg PO HS JOSE DANIEL; Protocol Stop: 02/14/18 20:59 Last Admin: 12/17/17 21:01 Dose: 15 mg Gabapentin (Neurontin) 100 mg PO DAILY JOSE DANIEL Stop: 02/02/18 08:59 Last Admin: 12/17/17 08:32 Dose: 100 mg Lactobacillus Rhamnosus (Culturelle 15b) 1 each PO DAILY JOSE DANIEL Stop: 02/15/18 08:59 Last Admin: 12/17/17 09:53 Dose: 1 each Lamotrigine (Lamictal) 75 mg PO BID JOSE DANIEL; Protocol Stop: 02/03/18 08:59 Last Admin: 12/17/17 17:38 Dose: 75 mg Lisinopril (Zestril) 10 mg PO DAILY [facility] Stop: 02/02/18 08:59 Last Admin: 12/17/17 08:33 Dose: 10 mg Lorazepam (Ativan) 0.5 mg PO Q4HR PRN; Protocol PRN Reason: Anxiety/agitation Stop: 01/02/18 19:53 Last Admin: 12/17/17 20:38 Dose: 0.5 mg Metformin HCl (Glucophage) 500 mg PO BIDWM JOSE DANIEL Stop: 02/02/18 07:59 Last Admin: 12/17/17 17:38 Dose: 500 mg Miscellaneous (Probiotic Screen) 1 ea MC PRN PRN PRN Reason: PROTOCOL Stop: 02/15/18 08:59 Multivitamins/Vitamin C (Theragran) 1 tab PO DAILY JOSE DANIEL Stop: 02/02/18 08:59 Last Admin: 12/17/17 08:32 Dose: 1 tab Olanzapine (Zyprexa) 10 mg PO Q12HR JOSE DANIEL; Protocol Stop: 02/02/18 08:59 Last Admin: 12/17/17 21:04 Dose: 10 mg Tamsulosin HCl (Flomax) 0.4 mg PO HS JOSE DANIEL Stop: 02/02/18 20:59 Last Admin: 12/17/17 21:04 Dose: 0.4 mg Trazodone HCl (Desyrel) 100 mg PO HS [facility]; Protocol Stop: 02/05/18 20:59 Last Admin: 12/17/17 21:01 Dose: 100 mg Trimethoprim/Sulfamethoxazole (Bactrim Ds) 1 tab PO BID JOSE DANIEL Stop: 12/22/17 16:59 Last Admin: 12/17/17 17:38 Dose: 1 tab Venlafaxine HCl (Effexor Xr) 150 mg PO DAILY JOSE DANIEL; Protocol Stop: 02/07/18 08:59 Last Admin: 12/17/17 08:31 Dose: 150 mg Zolpidem Tartrate (Ambien) 5 mg PO HS PRN PRN Reason: Insomnia Stop: 02/01/18 19:53 Last Admin: 12/16/17 21:28 Dose: 5 mg General: demented HEENT: NC/AT, PERRLA, EOMI, anicteric sclerae, throat clear Neck: No JVD, No thyromegaly, +2 carotid pulse wo bruit, No LAD Cardiovascular: RRR, Normal S1, Normal S2, without murmur Abdomen: soft, non-tender, tender, thin, globular, non-distended Extremities: clear Neurological: no change Internal Medicine Assmt/Plan - Assessment Assessment: 1.HYPERLIPIDEMIA. 2.BPH. 3.HTN. 4.DEMENTIA. - Plan Plan: CONTINUE ON CURRENT MEDICATION AND DIET. Nutritional Asmnt/Malnutr-PDOC - Dietary Evaluation Malnutrition Findings (Please click <Entered> for more info): Nutritional Asmnt/Malnutrition Start: 12/06/17 10: 47 Text: Status: Complete Freq: Protocol: Document 12/06/17 14:24 LCHENG (Rec: 12/06/17 14:37 [email or web address] [id number]) Nutritional Asmnt/Malnutrition Patient General Information Nutritional Screening Moderate Risk Diagnosis depresion Pertinent Medical Hx/Surgical Hx HTN, hyperlipidemia, BPH, dementia, psychosis Subjective Information Pt seen lying in bed at time of visit, finished lunch. Pt stated good appetite, he had big breakfast this morning, not hungry at this time. Advice pt to request snacks in the afternoon as needed. Pt verberlly understood. Current Diet Order/ Nutrition Support STEPHAN Pertinent Medications glucophage, theragran Pertinent Labs 12/05 Cl 108, BUN 30, Cr 1.5, GFR 59.7, Glucose 116 Nutritional Hx/Data Height 1.7 m Height (Calculated Centimeters) 170.2 Current Weight (lbs) 70.307 kg Weight (Calculated Kilograms) 70.3 Weight (Calculated Grams) 69152.8 [place] Body Weight 148 Body Mass Index (BMI) 24.3 Weight Status Approriate GI Symptoms GI Symptoms None Last BM 12/06 Difficult in: None Skin Integrity/Comment: intact Current %PO Good (75-100%) Estimated Nutritional Goals BEE in Kcals: Using Current wt Calories/Kcals/Kg 25-30 Kcals Calculated 3816-7005 Protein: Using Current wt Protein g/k.7 Protein Calculated 50 Fluid: ml 1750-2100ml (1ml/kcal) Nutritional Problem 1. Problem Problem altered nutrition related labs Etiology impaired renal function Signs/Symptoms: BUN 30, Cr 1.5, GFR 59.7 Malnutrition Alert Is there a minimum of two criteria No selected? Query Text:Check all the applicable criteria. A minimum of two criteria are recommended for diagnosis of either severe or non-severe malnutrition. Malnutrition Related to Morbid Obesity Malnutrition related to morbid obesity No Intervention/Recommendation Comments 1. Continue with STEPHAN diet as ordered. Monitor renal labs. 2. Monitor PO intake, wt, labs and skin integrity 3. F/U as low risk in 7 days, 12/13 Expected Outcomes/Goals Expected Outcomes/Goals 1. PO intake to meet at least 75% of nutritional needs. 2. Wt stability, skin to remain intact, labs to approach WNL.
--- NOTE | 2017-12-18 00:09 | Progress Notes ---
DATE: 12/17/2017 SUBJECTIVE: Case was discussed with staff of the patient, reviewed records. The patient continues to be disheveled. Continues to be depressed, anxious, demanding at times since he is here. He continues to have poor insight, continues to be overwhelmed, at times psychotic, very poor insight. He is demanding to leave, but yet he cannot come up with a safe plan for self-care. I did increase his Lexapro dose yesterday to 15 mg a day with no side effects, no sedation, no nausea, no extrapyramidal symptoms. He is on Zyprexa 10 mg twice a day and Effexor 150 mg daily with no side effects, no sedation, no nausea and we will continue to work with the patient in group therapy, milieu therapy, and adjust the medication as needed. JOB# [id number]
--- NOTE | 2017-12-18 03:05 | Discharge Summary ---
DATE OF DISCHARGE: 12/16/2017 DATE OF DISCHARGE: 12/16/2017 PATIENT'S AGE: 67. SEX: Male. PHYSICIAN: Dr. Iglesias FINAL DIAGNOSIS/PRIMARY DIAGNOSIS: Depressive disorder, severe, with psychotic features. SECONDARY DIAGNOSIS: Dementia, moderate, with psychotic features. REASON FOR HOSPITALIZATION: The patient was admitted to the hospital because of confusion and agitation and inability to follow directions. HOSPITAL COURSE: The patient continued to be confused and agitated. The patient also was depressed and endorsed having crying spells. Also was confused and needing lots of redirections. ____ of anger and irritability and paranoia. The patient also was confused and forgetful, but he was able to follow directions. The patient was given Lexapro and that helps the patient's mood. The patient was less depressed. The patient was not suicidal or homicidal and the patient was discharged from the hospital. PHYSICAL EXAMINATION: The patient basically showed no major medical problems. Blood workup was also basically within normal. AFTER-DISCHARGE PLANS: The patient discharged from the hospital and went to ____ with plans for outpatient treatment and followup there. EXPECTED OUTCOME AFTER DISCHARGE: Fair if the patient continued to take psychotropic medications and follow up on discharge. JOB# [id number]
[2017-12-18] MEDS: Lactobacillus Rhamnosus GG 15 Billion CFU CAP.SPRINK PO SCH (09:43)
[2017-12-18] MEDS: Multivitamin Tab PO SCH (09:45)
[2017-12-18] MEDS: Sulfamethoxazole/TMP 800/160mg Tab PO SCH (09:47)
--- NOTE | 2017-12-20 00:08 | Progress Notes ---
DATE: 12/18/2017 I dictated the discharge summary yesterday since the patient was supposed to be discharged yesterday to [facility], but the patient did not leave. Please change the dictation date to today's date. Discharge summary dictation number is [id number] and another number is [id number]. JOB# [id number]
== END 2017-12-18 12:30 | DRG 885 ==
LOC: GERO2 19:30 → GERO 12-05 17:17
PROVIDERS: ADMIT Psychiatry & Neurology Psychiatry; ATTEND Psychiatry & Neurology Psychiatry
DX: F32.3 Major depressive disorder, single episode, severe with psychotic features (principal); N39.0 Urinary tract infection, site not specified; N40.0 Benign prostatic hyperplasia without lower urinary tract symptoms; I10 Essential (primary) hypertension; E78.5 Hyperlipidemia, unspecified; F03.90 Unspecified dementia, unspecified severity, without behavioral disturbance, psychotic disturbance, mood disturbance, and anxiety; F29 Unspecified psychosis not due to a substance or known physiological condition; I25.10 Atherosclerotic heart disease of native coronary artery without angina pectoris; I25.2 Old myocardial infarction; Z88.8 Allergy status to other drugs, medicaments and biological substances
CPT/HCPCS: 36415-UA; 80053-TC; 81001-TC; 84443-TC; 85025-TC; 87086-90; 90899; G0410; J1200; J1630; J2060; Z7610